=== PATIENT | female | born 1960 | race Caucasian/White ===

== ENCOUNTER 2017-08-31 16:24 | Inpatient (IN) | payer OTHER ==
[~2017-08-31] VITALS: Ht 162.6 cm; Wt 77.1 kg
[2017-08-31 16:48] VITALS: BP 134/90
[2017-08-31] MEDS ORDERED: CLON0.3T47 PO (17:36)
[2017-08-31] MEDS ORDERED: MORP30TA81 PO (17:36)
[2017-08-31] MEDS ORDERED: METO10TA2 PO (17:36)
[2017-08-31] MEDS ORDERED: TRAZ100T15 PO (17:36)
[2017-08-31] MEDS ORDERED: OXYC5TAB3 PO (17:36)
[2017-08-31] MEDS ORDERED: POTA20PA25 PO (17:36)
[2017-08-31] MEDS ORDERED: HYDR25TA11 PO (17:36)
[2017-08-31] MEDS ORDERED: DILT300C2 PO (17:36)
[2017-08-31] MEDS ORDERED: DIAZ5TAB4 PO (17:36)
[2017-08-31] MEDS ORDERED: ONDA4TAB12 PO (17:36)
[2017-08-31] MEDS ORDERED: PLEASE ENTER HEIGHT AND WEIGHT MC SCH ×2 (19:00→22:30)
[2017-08-31] MEDS ORDERED: PROMETHAZINE 25 MG/ML, 1ML IM PRN (19:00)
[2017-08-31] MEDS ORDERED: MAGNESIUM SULFATE PMX 2GM/50ML 50 ML IV ONE (19:30)
[2017-08-31] MEDS ORDERED: THIAMINE 200 MG in SODIUM CHLORIDE 0.9% 50 ML IV ONE (19:30)
[2017-08-31] MEDS ORDERED: POTASSIUM CHLORIDE 40 MEQ in SODIUM CHLORIDE 0.9% 500 ML IV ONE (19:30)
[2017-08-31 20:01] VITALS: BP 162/112
[2017-08-31] MEDS: OXYcodone IR 5MG TABLET PO PRN (21:27)
[2017-08-31 21:39] LABS: IS PT STATUS REG ER OR PRE ER? NO
[2017-08-31] MEDS: TRAZODONE 100MG TABLET PO PRN (21:53)
[2017-08-31] MEDS: DIAZEPAM 5 MG TABLET PO SCH (21:53)
[2017-08-31] MEDS: CEFTRIAXONE PMX 1GM/50ML 50 ML IV SCH (21:53)
[2017-08-31] MEDS: ENOXAPARIN 40 MG/0.4 ML SQ SCH (21:54)
[2017-08-31] MEDS: MORPHINE SULFATE 4 MG/ML, 1ML IVPush PRN (22:46)
[2017-09-01 01:12] VITALS: BP 109/67
[2017-09-01] MEDS: ONDANSETRON 2MG/ML, 2ML IVPush PRN ×2 (01:40→20:21)
[2017-09-01 05:56] LABS: HEMATOCRIT 47.3 % (34.6-47.8); HEMOGLOBIN 15.9 g/dL (11.7-16.4); WHITE BLOOD COUNT 9.2 x10^3/uL (3.4-10)
[2017-09-01 06:10] LABS: BLOOD UREA NITROGEN 23 mg/dL (7-18)
[2017-09-01 06:14] LABS: ASPARTATE AMINO TRANSFERASE 50 U/L (15-37)
[2017-09-01 06:16] LABS: IS PT STATUS REG ER OR PRE ER? NO
[2017-09-01] MEDS: OXYcodone IR 5MG TABLET PO PRN ×3 (06:18→20:21)
[2017-09-01] MEDS: THIAMINE 100 MG, MVI ADULT 10 ML, FOLIC ACID 1 MG in D5%-0.9% NACL 1,000 ML IV SCH (06:18)
[2017-09-01 07:15] VITALS: BP 106/70
[2017-09-01 07:20] VITALS: BP 106/70
[2017-09-01] MEDS: DILTIAZEM 300 MG CAP.ER.24H PO SCH (08:37)
[2017-09-01] MEDS: MORPHINE SULFATE 4 MG/ML, 1ML IVPush PRN (08:38)
[2017-09-01 11:23] LABS: IS PT STATUS REG ER OR PRE ER? NO
[2017-09-01 13:27] VITALS: BP 120/77
[2017-09-01 18:23] VITALS: BP 131/84
[2017-09-01] MEDS: CEFTRIAXONE PMX 1GM/50ML 50 ML IV SCH (20:21)
[2017-09-01] MEDS: DIAZEPAM 5 MG TABLET PO SCH (20:21)
[2017-09-01] MEDS: TRAZODONE 100MG TABLET PO PRN (20:21)
[2017-09-01] MEDS: ENOXAPARIN 40 MG/0.4 ML SQ SCH (20:22)
[2017-09-01] MEDS: SODIUM CHLORIDE 0.9% 1,000 ML IV SCH (23:31)
[2017-09-02 01:23] VITALS: BP 145/94
[2017-09-02] MEDS: OXYcodone IR 5MG TABLET PO PRN ×2 (01:52→11:31)
[2017-09-02] MEDS: ONDANSETRON 2MG/ML, 2ML IVPush PRN (01:52)
[2017-09-02] MEDS: LORazepam 2 MG/ML, 1ML IVPush PRN (01:52)
[2017-09-02 04:47] LABS: HEMOGLOBIN 15.2 g/dL (11.7-16.4); WHITE BLOOD COUNT 8.7 x10^3/uL (3.4-10)
[2017-09-02 05:00] LABS: BLOOD UREA NITROGEN 14 mg/dL (7-18)
[2017-09-02] MEDS: SODIUM CHLORIDE 0.9% 1,000 ML IV SCH ×2 (06:18→22:05)
[2017-09-02 09:02] VITALS: BP 164/98
[2017-09-02] MEDS ORDERED: POTASSIUM CHLORIDE 40 MEQ in SODIUM CHLORIDE 0.9% 500 ML IV ONE (11:00)
[2017-09-02 11:13] VITALS: BP 164/98
[2017-09-02] MEDS: THIAMINE 100 MG, MVI ADULT 10 ML, FOLIC ACID 1 MG in D5%-0.9% NACL 1,000 ML IV SCH (11:23)
[2017-09-02] MEDS: DILTIAZEM 300 MG CAP.ER.24H PO SCH (11:23)
[2017-09-02] MEDS: CHLORDIAZEPOXIDE 25 MG CAPSULE PO SCH ×3 (11:24→21:57)
[2017-09-02 13:45] VITALS: BP 135/90
[2017-09-02 18:34] VITALS: BP 131/88
[2017-09-02] MEDS: CEFTRIAXONE PMX 1GM/50ML 50 ML IV SCH (20:42)
[2017-09-02] MEDS: DIAZEPAM 5 MG TABLET PO SCH (21:00)
[2017-09-02] MEDS ORDERED: DIAZEPAM 10 MG TABLET ONE (21:53)
[2017-09-02] MEDS: ENOXAPARIN 40 MG/0.4 ML SQ SCH (21:57)
[2017-09-03] VITALS (7 sets, daily range): BP systolic 146–178; BP diastolic 90–135
[2017-09-03] MEDS: ONDANSETRON 2MG/ML, 2ML IVPush PRN ×3 (01:32→21:46)
[2017-09-03] MEDS ORDERED: hydrALAzine 20 MG/ML, 1ML IV PRN ×2 (02:30→04:00)
[2017-09-03 04:58] LABS: HEMATOCRIT 45.8 % (34.6-47.8); HEMOGLOBIN 15.3 g/dL (11.7-16.4); WHITE BLOOD COUNT 5.8 x10^3/uL (3.4-10)
[2017-09-03 05:12] LABS: BLOOD UREA NITROGEN 8 mg/dL (7-18)
[2017-09-03] MEDS: DILTIAZEM 300 MG CAP.ER.24H PO SCH (09:00)
[2017-09-03] MEDS: SODIUM CHLORIDE 0.9% 1,000 ML IV SCH ×2 (09:32→17:10)
[2017-09-03] MEDS: OXYcodone IR 5MG TABLET PO PRN (13:21)
[2017-09-03] MEDS: THIAMINE 100 MG, MVI ADULT 10 ML, FOLIC ACID 1 MG in D5%-0.9% NACL 1,000 ML IV SCH (15:35)
[2017-09-03] MEDS ORDERED: MAGNESIUM SULFATE PMX 2GM/50ML 50 ML IV ONE (16:30)
[2017-09-03] MEDS: ENOXAPARIN 40 MG/0.4 ML SQ SCH (20:37)
[2017-09-03] MEDS: DIAZEPAM 5 MG TABLET PO SCH (20:37)
[2017-09-04] MEDS: OXYcodone IR 5MG TABLET PO PRN (01:46)
[2017-09-04] MEDS: SODIUM CHLORIDE 0.9% 1,000 ML IV SCH ×3 (01:46→15:17)
[2017-09-04 01:55] VITALS: BP 155/97
[2017-09-04 06:14] LABS: HEMATOCRIT 44.9 % (34.6-47.8); HEMOGLOBIN 14.8 g/dL (11.7-16.4); WHITE BLOOD COUNT 5.6 x10^3/uL (3.4-10)
[2017-09-04 06:31] LABS: ASPARTATE AMINO TRANSFERASE 43 U/L (15-37); BLOOD UREA NITROGEN 5 mg/dL (7-18)
[2017-09-04 06:40] VITALS: BP 135/84
[2017-09-04] MEDS: ONDANSETRON 2MG/ML, 2ML IVPush PRN ×2 (08:48→20:37)
[2017-09-04] MEDS: DILTIAZEM 300 MG CAP.ER.24H PO SCH (08:52)
[2017-09-04] MEDS: MAGNESIUM OXIDE 400 MG TABLET PO SCH (08:52)
[2017-09-04 15:36] VITALS: BP 150/90
[2017-09-04 20:00] VITALS: BP 151/76
[2017-09-04] MEDS ORDERED: DIAZEPAM 10 MG TABLET ONE (20:14)
[2017-09-04] MEDS: DIAZEPAM 5 MG TABLET PO SCH (20:16)
[2017-09-04] MEDS: ENOXAPARIN 40 MG/0.4 ML SQ SCH (20:17)
[2017-09-05] MEDS: OXYcodone IR 5MG TABLET PO PRN ×3 (01:14→21:07)
[2017-09-05 02:00] VITALS: BP 163/88
[2017-09-05 05:16] LABS: HEMATOCRIT 45.1 % (34.6-47.8); HEMOGLOBIN 15.2 g/dL (11.7-16.4); WHITE BLOOD COUNT 6.2 x10^3/uL (3.4-10)
[2017-09-05 05:19] LABS: BLOOD UREA NITROGEN 7 mg/dL (7-18)
[2017-09-05] MEDS: DILTIAZEM 30 MG TABLET PO SCH ×2 (06:00→09:19)
[2017-09-05 07:53] VITALS: BP 150/81
[2017-09-05] MEDS: MAGNESIUM OXIDE 400 MG TABLET PO SCH (08:58)
[2017-09-05 15:15] VITALS: BP 127/76
[2017-09-05] MEDS: ENOXAPARIN 40 MG/0.4 ML SQ SCH (19:56)
[2017-09-05] MEDS: TRAZODONE 100MG TABLET PO PRN (19:57)
[2017-09-05] MEDS ORDERED: DIAZEPAM 10 MG TABLET ONE (19:58)
[2017-09-05 20:00] VITALS: BP 162/96
[2017-09-05] MEDS: DIAZEPAM 5 MG TABLET PO SCH (20:00)
[2017-09-06 02:00] VITALS: BP 143/86
[2017-09-06] MEDS: ONDANSETRON 2MG/ML, 2ML IVPush PRN ×2 (02:54→22:51)
[2017-09-06 05:54] LABS: HEMATOCRIT 43.5 % (34.6-47.8); HEMOGLOBIN 14.8 g/dL (11.7-16.4); WHITE BLOOD COUNT 6.1 x10^3/uL (3.4-10)
[2017-09-06 06:03] LABS: BLOOD UREA NITROGEN 11 mg/dL (7-18)
[2017-09-06 07:32] VITALS: BP 166/97
[2017-09-06] MEDS: MAGNESIUM OXIDE 400 MG TABLET PO SCH (08:52)
[2017-09-06] MEDS: IRBESARTAN 150 MG TABLET PO SCH (10:26)
[2017-09-06] MEDS: OXYcodone IR 5MG TABLET PO PRN ×2 (12:19→17:34)
[2017-09-06 16:26] VITALS: BP 161/89
[2017-09-06 20:00] VITALS: BP 126/77
[2017-09-06] MEDS ORDERED: DIAZEPAM 10 MG TABLET ONE (20:58)
[2017-09-06] MEDS: DIAZEPAM 5 MG TABLET PO SCH (21:00)
[2017-09-06] MEDS: ENOXAPARIN 40 MG/0.4 ML SQ SCH (21:04)
[2017-09-06] MEDS: DOCUSATE 100 MG CAPSULE PO PRN (22:51)
[2017-09-07 02:00] VITALS: BP 163/90
[2017-09-07] MEDS: OXYcodone IR 5MG TABLET PO PRN ×2 (02:52→17:19)
[2017-09-07 07:06] VITALS: BP 117/66
[2017-09-07] MEDS: MAGNESIUM OXIDE 400 MG TABLET PO SCH (08:31)
[2017-09-07] MEDS: IRBESARTAN 150 MG TABLET PO SCH (08:31)
[2017-09-07] MEDS: DOCUSATE 100 MG CAPSULE PO PRN (11:03)
[2017-09-07 13:55] VITALS: BP 134/76
[2017-09-07 19:51] VITALS: BP 150/89
[2017-09-07] MEDS: ENOXAPARIN 40 MG/0.4 ML SQ SCH (20:31)
[2017-09-07] MEDS: TRAZODONE 100MG TABLET PO PRN (20:32)
[2017-09-07] MEDS: DIAZEPAM 5 MG TABLET PO SCH (20:36)
[2017-09-08 01:15] VITALS: BP 150/88
[2017-09-08] MEDS: LORazepam 2 MG/ML, 1ML IVPush PRN (01:29)
[2017-09-08 05:19] LABS: BLOOD UREA NITROGEN 13 mg/dL (7-18)
[2017-09-08 05:29] LABS: HEMATOCRIT 43.3 % (34.6-47.8); HEMOGLOBIN 14.5 g/dL (11.7-16.4); WHITE BLOOD COUNT 7.6 x10^3/uL (3.4-10)
[2017-09-08 07:29] VITALS: BP 150/91
[2017-09-08] MEDS: IRBESARTAN 150 MG TABLET PO SCH (08:55)
[2017-09-08] MEDS: MAGNESIUM OXIDE 400 MG TABLET PO SCH (08:56)
[2017-09-08 13:48] VITALS: BP 125/80
[2017-09-08] MEDS ORDERED: MAGN400T26 PO (17:54)
[2017-09-08] MEDS ORDERED: IRBE150T49 PO (17:54)
[2017-09-09] MEDS ORDERED: IRBESARTAN 150 MG TABLET PO SCH (09:00)
== END 2017-09-08 18:40 | disposition home or self-care (01) | DRG 438 ==
LOC: 4WST 16:24 → 4EST 09-01 21:47
PROVIDERS: ADMIT Internal Medicine; ATTEND Internal Medicine
DX: K85.20 Alcohol induced acute pancreatitis without necrosis or infection (principal); E43 Unspecified severe protein-calorie malnutrition; F10.231 Alcohol dependence with withdrawal delirium; E87.2 Acidosis; D69.6 Thrombocytopenia, unspecified; D75.1 Secondary polycythemia; R65.10 Systemic inflammatory response syndrome (SIRS) of non-infectious origin without acute organ dysfunction; E87.1 Hypo-osmolality and hyponatremia; K56.7 Ileus, unspecified; N39.0 Urinary tract infection, site not specified; E87.5 Hyperkalemia; I10 Essential (primary) hypertension; F17.200 Nicotine dependence, unspecified, uncomplicated; G89.29 Other chronic pain; I45.81 Long QT syndrome; I48.91 Unspecified atrial fibrillation; Z90.710 Acquired absence of both cervix and uterus; Z88.8 Allergy status to other drugs, medicaments and biological substances
CPT/HCPCS: 36415; 71010; 80048; 80053; 80061; 81003; 82150; 82962; 83605; 83690; 83735; 84100; 84484; 85025; 87086; 93005; 93306; J0696; J1650; J2405; J3411; J3480; J7042; J0360; J2060; J3475; J7030; J7040

== ENCOUNTER 2018-03-21 10:57 | Inpatient (IN) | payer MEDICAID, OTHER ==
[~2018-03-21] VITALS: Ht 162.6 cm; Wt 68.2 kg
[~2018-03-21 10:57] MED LIST: CLON0.3T47 PO; DIAZ5TAB4 PO; DILT300C2 PO; HYDR25TA11 PO; IRBE150T49 PO; MAGN400T26 PO; METO10TA2 PO; MORP30TA81 PO; ONDA4TAB12 PO; OXYC5TAB3 PO; POTA20PA25 PO; TRAZ100T15 PO
[2018-03-21] MEDS ORDERED: SODIUM CHLORIDE FLUSH 10ML SYR IVF ONE (11:30)
[2018-03-21] MEDS ORDERED: SODIUM CHLORIDE 0.9% 1,000ML IVBOLUS ONE (11:30)
[2018-03-21 11:57] LABS: MEAN CORPUSCULAR HEMOGLOBIN 32.3 pg (27.0-34.8); MEAN CORPUSCULAR HGB CONC 33.4 g/dL (32.4-35.8); MEAN CORPUSCULAR VOLUME 96.7 fL (80-100); MEAN PLATELET VOLUME 9.5 fL (7.4-10.4); PLATELET COUNT 298 x10^3/uL (130-400); RED CELL DISTRIBUTION WIDTH 15.5 % (9.6-15.2)
[2018-03-21] MEDS ORDERED: CEFTRIAXONE PMX 1GM/50ML 50 ML IVPB ONE (12:00)
[2018-03-21 12:04] LABS: INTERNATIONAL NORMALIZED RATIO 1.1 (0.93-1.1); PROTHROMBIN TIME 11.4 Seconds (9.6-11.5)
[2018-03-21 12:12] LABS: MD YES
[2018-03-21 12:14] LABS: BAND#(MANUAL) 6.53 x10^3/uL; BANDS%(MANUAL) 21 % (0-7); LYMPH#(MANUAL) 1.56 x10^3/uL (1-3.4); LYMPHS% (MANUAL) 5 % (22-44); MONOS#(MANUAL) 0.62 x10^3/uL (0.3-2.7); MONOS% (MANUAL) 2 % (2-9); SEG#(MANUAL) 22.39 x10^3/uL (1.8-6.8); SEGS% (MANUAL) 72 % (42-75)
[2018-03-21 12:15] LABS: ALANINE AMINOTRANSFERASE 52 U/L (12-78); ANION GAP 14 mmol/L (5-15); ANISOCYTOSIS 1+; CALCIUM 9.3 mg/dL (8.5-10.1); CHLORIDE 95 mmol/L (98-107); CREATININE 1.03 mg/dL (0.55-1.02); PMNS WITH VACUOLES 1+; TOXIC GRAN 1+
[2018-03-21 12:16] LABS: <PLATELET ESTIMATE> ADEQUATE; <PLT MORPHOLOGY> NORMAL PLT MORPH
[2018-03-21 12:17] LABS: ALKALINE PHOSPHATASE 128 U/L (45-117); BILIRUBIN,TOTAL 1.9 mg/dL (0.2-1.0); TOTAL PROTEIN 6.7 g/dL (6.4-8.2)
[2018-03-21] MEDS ORDERED: CEFTRIAXONE PMX 1GM/50ML 50 ML ONE (13:10)
[2018-03-21] MEDS ORDERED: OMNIPAQUE 350 MG/ML, 150 ML BOTTLE ONE (13:23)
[2018-03-21] MEDS ORDERED: SODIUM CHLORIDE 0.9% 1,000 ML IV SCH ×2 (14:40→15:40)
[2018-03-21] MEDS: PIPERACILLIN/TAZO/PMX 4.5GM 100 ML IV SCH ×2 (15:00→21:21)
[2018-03-21] MEDS ORDERED: PHARMACOKINETIC MONITORING MC PRN (15:00)
[2018-03-21] MEDS ORDERED: VANCOMYCIN PER PHARMACY MC PRN (15:00)
[2018-03-21 15:28] LABS: MICROSCOPIC INDICATED
[2018-03-21 15:39] LABS: CULTURE INDICATED? YES
[2018-03-21] MEDS ORDERED: VANCOMYCIN 1,200 MG in SODIUM CHLORIDE 0.9% 250 ML IV SCH (16:00)
[2018-03-21] MEDS ORDERED: POTASSIUM CHLORIDE 40 MEQ in SODIUM CHLORIDE 0.9% 500 ML IV ONE (16:00)
[2018-03-21] MEDS ORDERED: GADOBUTROL 7.5 MMOL/7.5 ML PFS ONE (16:24)
[2018-03-21] MEDS: SODIUM CHLORIDE 0.9% 500 ML IV SCH ×4 (18:00→21:59)
[2018-03-21] MEDS: SODIUM CHLORIDE 0.9% 1,000 ML IV SCH (18:39)
[2018-03-21] MEDS ORDERED: ACETAMINOPHEN 650 MG SUPP PR PRN (19:00)
[2018-03-21] MEDS ORDERED: DEXTROSE 4 GM TAB.CHEW PO PRN (20:00)
[2018-03-21] MEDS ORDERED: DEXTROSE 50%, 50ML SYRINGE IVPush PRN (20:00)
[2018-03-21] MEDS ORDERED: GLUCAGON 1 MG IM PRN (20:00)
[2018-03-21 20:38] LABS: HEMOGLOBIN A1C 7.1 % (4.2-6.3)
[2018-03-21 20:43] VITALS: BP 125/80
[2018-03-21] MEDS: NICOTINE 7 MG/24 HR PATCH.TD24 TD SCH (21:00)
[2018-03-21] MEDS: SODIUM CHLORIDE FLUSH 10ML SYR IVF SCH (21:22)
[2018-03-21] MEDS ORDERED: MORPHINE SULFATE 4 MG/ML, 1ML ONE (21:54)
[2018-03-21] MEDS: INSULIN LISPRO 100 UNITS/ML, PEN SQ-INSULIN SCH (21:59)
[2018-03-21] MEDS: MORPHINE SULFATE 4 MG/ML, 1ML IVPush PRN (21:59)
[2018-03-21] MEDS ORDERED: OXYcodone IR 5MG TABLET PO PRN (22:00)
[2018-03-22] MEDS: PIPERACILLIN/TAZO/PMX 4.5GM 100 ML IV SCH ×2 (03:13→10:27)
[2018-03-22] MEDS: MORPHINE SULFATE 4 MG/ML, 1ML IVPush PRN ×3 (03:14→21:06)
[2018-03-22 04:28] LABS: MEAN CORPUSCULAR HEMOGLOBIN 32.3 pg (27.0-34.8); MEAN CORPUSCULAR HGB CONC 33.3 g/dL (32.4-35.8); MEAN PLATELET VOLUME 9.6 fL (7.4-10.4); PLATELET COUNT 292 x10^3/uL (130-400); RED BLOOD COUNT 4.71 x10^6/uL (3.82-5.3); RED CELL DISTRIBUTION WIDTH 16.1 % (9.6-15.2)
[2018-03-22 04:41] LABS: ALANINE AMINOTRANSFERASE 43 U/L (12-78); ALBUMIN 1.6 g/dL (3.4-5.0); ANION GAP 10 mmol/L (5-15); CALCIUM 9.4 mg/dL (8.5-10.1); CHLORIDE 104 mmol/L (98-107)
[2018-03-22 04:44] LABS: ALKALINE PHOSPHATASE 133 U/L (45-117); BILIRUBIN,TOTAL 1.4 mg/dL (0.2-1.0); CREATININE 0.66 mg/dL (0.55-1.02); TOTAL PROTEIN 6.1 g/dL (6.4-8.2)
[2018-03-22 05:00] VITALS: BP 130/90
[2018-03-22 05:06] LABS: MD YES
[2018-03-22 05:09] LABS: BAND#(MANUAL) 2.37 x10^3/uL; BANDS%(MANUAL) 9 % (0-7); LYMPH#(MANUAL) 0.53 x10^3/uL (1-3.4); LYMPHS% (MANUAL) 2 % (22-44); MONOS#(MANUAL) 0.79 x10^3/uL (0.3-2.7); MONOS% (MANUAL) 3 % (2-9); SEG#(MANUAL) 22.62 x10^3/uL (1.8-6.8); SEGS% (MANUAL) 86 % (42-75)
[2018-03-22 05:10] LABS: <PLATELET ESTIMATE> ADEQUATE; ANISOCYTOSIS 1+; LARGE PLATELETS 1+; PMNS WITH VACUOLES 1+
[2018-03-22] MEDS: INSULIN LISPRO 100 UNITS/ML, PEN SQ-INSULIN SCH ×4 (08:18→21:07)
[2018-03-22] MEDS: SODIUM CHLORIDE FLUSH 10ML SYR IVF SCH ×2 (09:14→21:07)
[2018-03-22] MEDS: DEXAMETHASONE 4 MG/ML, 1ML IVPush SCH ×3 (10:26→21:06)
[2018-03-22] MEDS ORDERED: SODIUM CHLORIDE 0.9% IVPB SCH ×2 (10:30→11:00)
[2018-03-22] MEDS ORDERED: DAPTOMYCIN IVPB SCH ×2 (10:30→11:00)
[2018-03-22] MEDS: SODIUM CHLORIDE 0.9% 1,000 ML IV SCH (12:16)
[2018-03-22 12:34] LABS: HCT (SEDRATE) 45.5 % (34.6-47.8)
[2018-03-22 12:47] LABS: ANION GAP 10 mmol/L (5-15); CALCIUM 9.5 mg/dL (8.5-10.1); CHLORIDE 105 mmol/L (98-107); CREATININE 0.59 mg/dL (0.55-1.02)
[2018-03-22 13:05] LABS: C-REACTIVE PROTEIN, QUANT > 19.00 mg/dL (0.02-0.49)
[2018-03-22] MEDS: DAPTOMYCIN 400 MG in SODIUM CHLORIDE 0.9% 100 ML IVPB SCH (13:05)
[2018-03-22] MEDS: NICOTINE 7 MG/24 HR PATCH.TD24 TD SCH (20:59)
[2018-03-22] MEDS: hydrALAzine 20 MG/ML, 1ML IV PRN (23:03)
[2018-03-23] MEDS ORDERED: LORazepam 2 MG/ML, 1ML ONE (00:18)
[2018-03-23] MEDS: SODIUM CHLORIDE 0.9% 1,000 ML IV SCH ×2 (00:23→11:44)
[2018-03-23] MEDS: LORazepam 2 MG/ML, 1ML IVPush PRN ×3 (00:24→12:09)
[2018-03-23] MEDS: hydrALAzine 20 MG/ML, 1ML IV PRN ×2 (04:10→10:33)
[2018-03-23] MEDS: DEXAMETHASONE 4 MG/ML, 1ML IVPush SCH ×4 (04:10→22:16)
[2018-03-23] MEDS: MORPHINE SULFATE 4 MG/ML, 1ML IVPush PRN ×2 (04:10→22:16)
[2018-03-23 04:33] LABS: MEAN CORPUSCULAR HEMOGLOBIN 32.1 pg (27.0-34.8); MEAN CORPUSCULAR VOLUME 97.4 fL (80-100); MEAN PLATELET VOLUME 9.8 fL (7.4-10.4); PLATELET COUNT 330 x10^3/uL (130-400); RED BLOOD COUNT 4.93 x10^6/uL (3.82-5.3); RED CELL DISTRIBUTION WIDTH 16.1 % (9.6-15.2)
[2018-03-23 04:41] LABS: ALBUMIN 1.6 g/dL (3.4-5.0); ANION GAP 9 mmol/L (5-15); CALCIUM 9.6 mg/dL (8.5-10.1); CHLORIDE 107 mmol/L (98-107)
[2018-03-23 04:44] LABS: ALANINE AMINOTRANSFERASE 30 U/L (12-78); ALKALINE PHOSPHATASE 120 U/L (45-117); CREATININE 0.56 mg/dL (0.55-1.02); TOTAL PROTEIN 6.6 g/dL (6.4-8.2)
[2018-03-23 04:48] VITALS: BP 174/78
[2018-03-23 05:41] LABS: MD YES
[2018-03-23 05:44] LABS: BAND#(MANUAL) 1.55 x10^3/uL; BANDS%(MANUAL) 5 % (0-7); LYMPH#(MANUAL) 0.31 x10^3/uL (1-3.4); LYMPHS% (MANUAL) 1 % (22-44); MONOS#(MANUAL) 0.93 x10^3/uL (0.3-2.7); MONOS% (MANUAL) 3 % (2-9); SEG#(MANUAL) 28.21 x10^3/uL (1.8-6.8); SEGS% (MANUAL) 91 % (42-75)
[2018-03-23 05:45] LABS: <PLATELET ESTIMATE> ADEQUATE; ANISOCYTOSIS 1+; LARGE PLATELETS 1+; PMNS WITH VACUOLES 1+
[2018-03-23] MEDS ORDERED: METOPROLOL TARTRATE 25 MG TABLET PO ONE (08:30)
[2018-03-23] MEDS: SODIUM CHLORIDE FLUSH 10ML SYR IVF SCH ×2 (09:31→21:00)
[2018-03-23] MEDS: INSULIN LISPRO 100 UNITS/ML, PEN SQ-INSULIN SCH ×4 (09:31→22:17)
[2018-03-23] MEDS: METOPROLOL TARTRATE 25 MG TABLET PO SCH ×2 (09:32→22:16)
[2018-03-23] MEDS: DAPTOMYCIN 400 MG in SODIUM CHLORIDE 0.9% 100 ML IVPB SCH (13:33)
[2018-03-23 14:20] LABS: AMPHETAMINE SCREEN, URINE Negative (Negative); BARBITURATE SCREEN, URINE Negative (Negative); BENZODIAZEPINE SCREEN, URINE Negative (Negative); CANNABINOID SCREEN, URINE Negative (Negative); COCAINE SCREEN, URINE Negative (Negative); METHADONE SCREEN, URINE Negative (Negative); OPIATE SCREEN, URINE Negative (Negative)
[2018-03-23] MEDS: CHLORDIAZEPOXIDE 25 MG CAPSULE PO SCH ×2 (14:38→22:16)
[2018-03-23] MEDS: THIAMINE 200 MG in SODIUM CHLORIDE 0.9% 50 ML IV SCH (14:38)
[2018-03-23] MEDS ORDERED: THROMBIN 5,000 UNIT VIAL TP ONE (15:54)
[2018-03-23] MEDS ORDERED: BACITRACIN OINT 500U/GM, 15 GM ONE (15:54)
[2018-03-23] MEDS ORDERED: BUPIVACAINE/PF-EPI 0.5% 1:200K ONE (15:54)
[2018-03-23] MEDS ORDERED: BACITRACIN 50,000 UNIT ONE (15:54)
[2018-03-23] MEDS ORDERED: methylPREDNISolone *ACETATE* 40 MG/ML ONE (15:54)
[2018-03-23] MEDS ORDERED: PROPOFOL 10 MG/ML, 20ML ONE (17:01)
[2018-03-23] MEDS ORDERED: ROCURONIUM 10 MG/ML,10ML ONE (17:01)
[2018-03-23] MEDS ORDERED: NEOSTIGMINE 1 MG/ML, 10ML ONE (17:01)
[2018-03-23] MEDS ORDERED: GLYCOPYRROLATE 0.2MG/1ML, 5ML ONE (17:01)
[2018-03-23] MEDS ORDERED: DEXAMETHASONE 4 MG/ML, 1ML ONE ×3 (17:01→17:36)
[2018-03-23] MEDS ORDERED: ONDANSETRON 2MG/ML, 2ML ONE (17:01)
[2018-03-23] MEDS ORDERED: CEFAZOLIN 1,000 MG ONE (17:01)
[2018-03-23] MEDS ORDERED: SUCCINYLCHOLINE 20 MG/ML, 10ML ONE (17:01)
[2018-03-23] MEDS ORDERED: VANCOMYCIN 1,000 MG ONE (17:33)
[2018-03-23] MEDS ORDERED: SODIUM CHLORIDE 0.9% 100 ML ONE (17:33)
[2018-03-23] MEDS ORDERED: MIDAZOLAM 1 MG/ML, 2ML ONE (20:28)
[2018-03-23] MEDS ORDERED: FENTANYL PF 100 MCG/2ML ONE (20:28)
[2018-03-23] MEDS ORDERED: DIAZEPAM 5 MG/ML, 2ML IV PRN (20:30)
[2018-03-23] MEDS ORDERED: METOPROLOL TARTRATE 50 MG TABLET PO SCH (20:30)
[2018-03-23] MEDS ORDERED: OXYcodone 5 MG/5 ML ORAL.SOL UDC ONE (20:34)
[2018-03-23] MEDS ORDERED: OXYcodone 5 MG/5 ML ORAL.SOL UDC PO PRN (21:00)
[2018-03-23] MEDS: NICOTINE 7 MG/24 HR PATCH.TD24 TD SCH (22:08)
[2018-03-24] MEDS: MORPHINE SULFATE 4 MG/ML, 1ML IVPush PRN ×4 (02:11→21:55)
[2018-03-24 04:15] VITALS: BP 145/97
[2018-03-24 04:27] LABS: MEAN CORPUSCULAR HEMOGLOBIN 32.7 pg (27.0-34.8); MEAN CORPUSCULAR HGB CONC 33.5 g/dL (32.4-35.8); MEAN CORPUSCULAR VOLUME 97.6 fL (80-100); MEAN PLATELET VOLUME 9.7 fL (7.4-10.4); PLATELET COUNT 299 x10^3/uL (130-400); RED BLOOD COUNT 4.55 x10^6/uL (3.82-5.3); RED CELL DISTRIBUTION WIDTH 16.3 % (9.6-15.2)
[2018-03-24 04:37] LABS: ALBUMIN 1.5 g/dL (3.4-5.0); ANION GAP 7 mmol/L (5-15); CALCIUM 8.8 mg/dL (8.5-10.1); CHLORIDE 112 mmol/L (98-107)
[2018-03-24 04:41] LABS: ALANINE AMINOTRANSFERASE 20 U/L (12-78); ALKALINE PHOSPHATASE 89 U/L (45-117); BILIRUBIN,TOTAL 0.8 mg/dL (0.2-1.0); CREATININE 0.49 mg/dL (0.55-1.02); TOTAL PROTEIN 5.9 g/dL (6.4-8.2)
[2018-03-24 05:07] LABS: MD YES
[2018-03-24 05:09] LABS: ANISOCYTOSIS 1+; BAND#(MANUAL) 2.55 x10^3/uL; BANDS%(MANUAL) 9 % (0-7); LYMPHS% (MANUAL) 6 % (22-44); MONOS#(MANUAL) 1.13 x10^3/uL (0.3-2.7); MONOS% (MANUAL) 4 % (2-9); SEG#(MANUAL) 22.92 x10^3/uL (1.8-6.8); SEGS% (MANUAL) 81 % (42-75)
[2018-03-24 05:10] LABS: <PLATELET ESTIMATE> ADEQUATE; LARGE PLATELETS 1+; PMNS WITH VACUOLES 1+
[2018-03-24] MEDS: DEXAMETHASONE 4 MG/ML, 1ML IVPush SCH (05:17)
[2018-03-24] MEDS: CHLORDIAZEPOXIDE 25 MG CAPSULE PO SCH ×3 (06:17→21:44)
[2018-03-24] MEDS: SODIUM CHLORIDE 0.9% 1,000 ML IV SCH (07:48)
[2018-03-24] MEDS: INSULIN LISPRO 100 UNITS/ML, PEN SQ-INSULIN SCH ×4 (07:48→21:56)
[2018-03-24] MEDS: SODIUM CHLORIDE FLUSH 10ML SYR IVF SCH ×2 (07:48→21:55)
[2018-03-24] MEDS: hydrALAzine 20 MG/ML, 1ML IV PRN ×2 (08:20→16:26)
[2018-03-24] MEDS: LORazepam 2 MG/ML, 1ML IVPush PRN ×4 (08:43→21:55)
[2018-03-24] MEDS ORDERED: LACTATED RINGERS 1,000 ML IV SCH (09:00)
[2018-03-24] MEDS: METOPROLOL 1 MG/ML, 5ML IVPush SCH ×2 (10:41→18:16)
[2018-03-24] MEDS: METOPROLOL TARTRATE 25 MG TABLET PO SCH ×2 (10:41→20:15)
[2018-03-24] MEDS: DAPTOMYCIN 400 MG in SODIUM CHLORIDE 0.9% 100 ML IVPB SCH (13:55)
[2018-03-24] MEDS: THIAMINE 200 MG in SODIUM CHLORIDE 0.9% 50 ML IV SCH (14:40)
[2018-03-24] MEDS: NICOTINE 7 MG/24 HR PATCH.TD24 TD SCH (20:15)
[2018-03-25] MEDS: METOPROLOL 1 MG/ML, 5ML IVPush SCH ×5 (00:11→23:17)
[2018-03-25 04:00] VITALS: BP 148/95
[2018-03-25] MEDS: LORazepam 2 MG/ML, 1ML IVPush PRN ×3 (04:18→17:15)
[2018-03-25] MEDS: MORPHINE SULFATE 4 MG/ML, 1ML IVPush PRN ×4 (04:18→20:53)
[2018-03-25 04:46] LABS: MEAN CORPUSCULAR HEMOGLOBIN 32.6 pg (27.0-34.8); MEAN CORPUSCULAR HGB CONC 33.6 g/dL (32.4-35.8); MEAN CORPUSCULAR VOLUME 97.1 fL (80-100); MEAN PLATELET VOLUME 9.7 fL (7.4-10.4); PLATELET COUNT 257 x10^3/uL (130-400); RED BLOOD COUNT 4.61 x10^6/uL (3.82-5.3)
[2018-03-25 04:56] LABS: ALBUMIN 1.8 g/dL (3.4-5.0); ANION GAP 6 mmol/L (5-15); CALCIUM 9.2 mg/dL (8.5-10.1); CHLORIDE 111 mmol/L (98-107)
[2018-03-25 05:26] LABS: ALANINE AMINOTRANSFERASE 24 U/L (12-78); ALKALINE PHOSPHATASE 79 U/L (45-117); BILIRUBIN,TOTAL 1.3 mg/dL (0.2-1.0); TOTAL PROTEIN 6.1 g/dL (6.4-8.2)
[2018-03-25 05:40] LABS: BASOPHILS # (AUTO) 0.04 x10^3/uL (0-0.1); BASOPHILS % (AUTO) 0 % (0-1); EOSINOPHILS # (AUTO) 0.02 x10^3/uL (0-0.4); EOSINOPHILS % (AUTO) 0 % (1-7); LYMPHOCYTES # (AUTO) 0.65 x10^3/uL (1-3.4); LYMPHOCYTES % (AUTO) 3 % (22-44); MD SCAN; MONOCYTES # (AUTO) 0.16 x10^3/uL (0.2-0.8); MONOCYTES % (AUTO) 1 % (2-9); NEUTROPHILS # (AUTO) 22.05 x10^3/uL (1.8-6.8); NEUTROPHILS % (AUTO) 96 % (42-75)
[2018-03-25] MEDS: CHLORDIAZEPOXIDE 25 MG CAPSULE PO SCH ×3 (06:03→20:05)
[2018-03-25] MEDS ORDERED: ERGOCALCIFEROL 50,000 UNIT CAPSULE PO SCH (07:30)
[2018-03-25] MEDS ORDERED: MAGNESIUM SULFATE PMX 2GM/50ML 50 ML IV ONE (07:30)
[2018-03-25] MEDS: INSULIN LISPRO 100 UNITS/ML, PEN SQ-INSULIN SCH ×4 (08:35→21:00)
[2018-03-25] MEDS: METOPROLOL TARTRATE 25 MG TABLET PO SCH ×2 (09:00→20:05)
[2018-03-25] MEDS: SODIUM CHLORIDE FLUSH 10ML SYR IVF SCH ×2 (09:52→20:50)
[2018-03-25] MEDS: SODIUM CHLORIDE 0.45% 1,000 ML IV SCH ×2 (09:53→23:20)
[2018-03-25] MEDS ORDERED: RIFAMPIN 600 MG IVPB SCH (10:00)
[2018-03-25] MEDS: RIFAMPIN 600 MG in SODIUM CHLORIDE 0.9% 100 ML IV SCH (11:04)
[2018-03-25] MEDS: THIAMINE 200 MG in SODIUM CHLORIDE 0.9% 50 ML IV SCH (13:07)
[2018-03-25] MEDS: DAPTOMYCIN 400 MG in SODIUM CHLORIDE 0.9% 100 ML IVPB SCH (13:25)
[2018-03-25] MEDS: hydrALAzine 20 MG/ML, 1ML IV PRN (17:14)
[2018-03-25] MEDS ORDERED: LORazepam 2 MG/ML, 1ML IV PRN ×4 (20:30)
[2018-03-25] MEDS: NICOTINE 7 MG/24 HR PATCH.TD24 TD SCH (20:50)
[2018-03-25] MEDS: LORazepam 2 MG/ML, 1ML IV PRN (23:25)
[2018-03-26] MEDS: CHLORDIAZEPOXIDE 25 MG CAPSULE PO SCH ×3 (00:32→19:26)
[2018-03-26 05:50] LABS: MEAN CORPUSCULAR HEMOGLOBIN 32.8 pg (27.0-34.8); MEAN CORPUSCULAR HGB CONC 34.2 g/dL (32.4-35.8); MEAN CORPUSCULAR VOLUME 95.9 fL (80-100); MEAN PLATELET VOLUME 10.2 fL (7.4-10.4); PLATELET COUNT 227 x10^3/uL (130-400); RED BLOOD COUNT 4.36 x10^6/uL (3.82-5.3)
[2018-03-26 06:01] LABS: ALANINE AMINOTRANSFERASE 17 U/L (12-78); ALBUMIN 1.8 g/dL (3.4-5.0); ANION GAP 9 mmol/L (5-15); CALCIUM 8.6 mg/dL (8.5-10.1); CHLORIDE 106 mmol/L (98-107); CREATININE 0.52 mg/dL (0.55-1.02)
[2018-03-26 06:11] LABS: ALKALINE PHOSPHATASE 82 U/L (45-117); BILIRUBIN,TOTAL 3.8 mg/dL (0.2-1.0); TOTAL PROTEIN 6.1 g/dL (6.4-8.2)
[2018-03-26 06:21] LABS: MD YES
[2018-03-26 06:27] LABS: <PLATELET ESTIMATE> ADEQUATE; ANISOCYTOSIS 1+; BAND#(MANUAL) 0.25 x10^3/uL; BANDS%(MANUAL) 1 % (0-7); LARGE PLATELETS 1+; LYMPH#(MANUAL) 0.99 x10^3/uL (1-3.4); LYMPHS% (MANUAL) 4 % (22-44); MONOS#(MANUAL) 0.74 x10^3/uL (0.3-2.7); MONOS% (MANUAL) 3 % (2-9); SEG#(MANUAL) 22.82 x10^3/uL (1.8-6.8); SEGS% (MANUAL) 92 % (42-75)
[2018-03-26 06:32] VITALS: BP 155/98
[2018-03-26] MEDS ORDERED: POTASSIUM CHLORIDE 40 MEQ in SODIUM CHLORIDE 0.9% 500 ML IV ONE (07:00)
[2018-03-26] MEDS: INSULIN LISPRO 100 UNITS/ML, PEN SQ-INSULIN SCH ×4 (07:00→20:45)
[2018-03-26] MEDS: METOPROLOL 1 MG/ML, 5ML IVPush SCH ×4 (07:22→23:22)
[2018-03-26] MEDS: LORazepam 2 MG/ML, 1ML IV PRN ×5 (07:34→22:09)
[2018-03-26] MEDS: ALBUTEROL/IPRATROPIUM 2.5MG/0.5MG, 3 ML NPPB SCH ×4 (08:10→19:52)
[2018-03-26] MEDS: METOPROLOL TARTRATE 25 MG TABLET PO SCH ×2 (09:00→19:26)
[2018-03-26] MEDS: SODIUM CHLORIDE FLUSH 10ML SYR IVF SCH ×2 (09:22→20:37)
[2018-03-26] MEDS: MORPHINE SULFATE 4 MG/ML, 1ML IVPush PRN ×3 (09:33→20:38)
[2018-03-26] MEDS: RIFAMPIN 600 MG in SODIUM CHLORIDE 0.9% 100 ML IV SCH (12:02)
[2018-03-26] MEDS: hydrALAzine 20 MG/ML, 1ML IV PRN ×2 (13:35→21:36)
[2018-03-26] MEDS: DAPTOMYCIN 400 MG in SODIUM CHLORIDE 0.9% 100 ML IVPB SCH (14:59)
[2018-03-26] MEDS: THIAMINE 200 MG in SODIUM CHLORIDE 0.9% 50 ML IV SCH (14:59)
[2018-03-26] MEDS: SODIUM CHLORIDE 0.45% 1,000 ML IV SCH (20:37)
[2018-03-26] MEDS: NICOTINE 7 MG/24 HR PATCH.TD24 TD SCH (20:38)
[2018-03-27] MEDS: MORPHINE SULFATE 4 MG/ML, 1ML IVPush PRN ×3 (01:17→23:14)
[2018-03-27] MEDS: LORazepam 2 MG/ML, 1ML IV PRN (02:22)
[2018-03-27] MEDS: KETOROLAC 30 MG/1 ML IVPush PRN ×3 (02:22→21:19)
[2018-03-27] MEDS: hydrALAzine 20 MG/ML, 1ML IV PRN (02:22)
[2018-03-27] MEDS: SODIUM CHLORIDE 0.45% 1,000 ML IV SCH (03:28)
[2018-03-27] MEDS: CHLORDIAZEPOXIDE 25 MG CAPSULE PO SCH (03:28)
[2018-03-27 04:32] LABS: MEAN CORPUSCULAR HEMOGLOBIN 31.7 pg (27.0-34.8); MEAN CORPUSCULAR HGB CONC 33.2 g/dL (32.4-35.8); MEAN CORPUSCULAR VOLUME 95.4 fL (80-100); MEAN PLATELET VOLUME 9.9 fL (7.4-10.4); PLATELET COUNT 229 x10^3/uL (130-400); RED BLOOD COUNT 4.17 x10^6/uL (3.82-5.3)
[2018-03-27 04:44] LABS: ALBUMIN 1.7 g/dL (3.4-5.0); ANION GAP 6 mmol/L (5-15); CALCIUM 8.3 mg/dL (8.5-10.1); CHLORIDE 110 mmol/L (98-107)
[2018-03-27 04:48] LABS: ALANINE AMINOTRANSFERASE 15 U/L (12-78); ALKALINE PHOSPHATASE 84 U/L (45-117); BILIRUBIN,TOTAL 3.2 mg/dL (0.2-1.0); CREATININE 0.45 mg/dL (0.55-1.02)
[2018-03-27 05:42] LABS: BASOPHILS # (AUTO) 0.02 x10^3/uL (0-0.1); BASOPHILS % (AUTO) 0 % (0-1); EOSINOPHILS # (AUTO) 0.08 x10^3/uL (0-0.4); EOSINOPHILS % (AUTO) 0 % (1-7); LYMPHOCYTES # (AUTO) 0.92 x10^3/uL (1-3.4); LYMPHOCYTES % (AUTO) 4 % (22-44); MD SCAN; MONOCYTES # (AUTO) 0.46 x10^3/uL (0.2-0.8); MONOCYTES % (AUTO) 2 % (2-9); NEUTROPHILS # (AUTO) 19.66 x10^3/uL (1.8-6.8); NEUTROPHILS % (AUTO) 93 % (42-75)
[2018-03-27] MEDS: INSULIN LISPRO 100 UNITS/ML, PEN SQ-INSULIN SCH ×4 (06:09→21:23)
[2018-03-27] MEDS: METOPROLOL 1 MG/ML, 5ML IVPush SCH ×4 (06:09→22:06)
[2018-03-27] MEDS ORDERED: D5%-0.45NACL+KCL 20MEQ 1,000 ML IV SCH (07:00)
[2018-03-27] MEDS: ALBUTEROL/IPRATROPIUM 2.5MG/0.5MG, 3 ML NPPB SCH (07:19)
[2018-03-27] MEDS: SODIUM CHLORIDE FLUSH 10ML SYR IVF SCH ×2 (10:21→21:08)
[2018-03-27] MEDS: CEFUROXIME 1.5 GM in SODIUM CHLORIDE 0.9% 100 ML IV SCH ×2 (10:35→17:19)
[2018-03-27] MEDS: RIFAMPIN 600 MG in SODIUM CHLORIDE 0.9% 100 ML IV SCH (12:10)
[2018-03-27] MEDS: METOPROLOL TARTRATE 25 MG TABLET PO SCH ×2 (13:36→21:08)
[2018-03-27] MEDS: THIAMINE 200 MG in SODIUM CHLORIDE 0.9% 50 ML IV SCH (13:36)
[2018-03-27] MEDS: DOCUSATE 50 MG/5 ML, 10ML UDC PO SCH (21:08)
[2018-03-27] MEDS: NICOTINE 7 MG/24 HR PATCH.TD24 TD SCH (21:08)
[2018-03-28] MEDS: CEFUROXIME 1.5 GM in SODIUM CHLORIDE 0.9% 100 ML IV SCH ×2 (01:01→08:20)
[2018-03-28 04:30] LABS: MEAN CORPUSCULAR HEMOGLOBIN 31.9 pg (27.0-34.8); MEAN CORPUSCULAR VOLUME 96.6 fL (80-100); MEAN PLATELET VOLUME 10.4 fL (7.4-10.4); PLATELET COUNT 211 x10^3/uL (130-400); RED BLOOD COUNT 3.84 x10^6/uL (3.82-5.3); RED CELL DISTRIBUTION WIDTH 16.1 % (9.6-15.2)
[2018-03-28 04:36] LABS: ALANINE AMINOTRANSFERASE 17 U/L (12-78); ALBUMIN 1.4 g/dL (3.4-5.0); ANION GAP 4 mmol/L (5-15); CALCIUM 8.5 mg/dL (8.5-10.1); CHLORIDE 112 mmol/L (98-107); CREATININE 0.53 mg/dL (0.55-1.02)
[2018-03-28 04:38] LABS: ALKALINE PHOSPHATASE 104 U/L (45-117); BILIRUBIN,TOTAL 1.8 mg/dL (0.2-1.0); TOTAL PROTEIN 5.7 g/dL (6.4-8.2)
[2018-03-28 04:59] LABS: BASOPHILS # (AUTO) 0.03 x10^3/uL (0-0.1); BASOPHILS % (AUTO) 0 % (0-1); EOSINOPHILS # (AUTO) 0.45 x10^3/uL (0-0.4); EOSINOPHILS % (AUTO) 3 % (1-7); LYMPHOCYTES # (AUTO) 0.84 x10^3/uL (1-3.4); LYMPHOCYTES % (AUTO) 6 % (22-44); MD SCAN; MONOCYTES # (AUTO) 0.43 x10^3/uL (0.2-0.8); MONOCYTES % (AUTO) 3 % (2-9); NEUTROPHILS # (AUTO) 13.25 x10^3/uL (1.8-6.8); NEUTROPHILS % (AUTO) 88 % (42-75)
[2018-03-28] MEDS: METOPROLOL 1 MG/ML, 5ML IVPush SCH (05:16)
[2018-03-28] MEDS: INSULIN LISPRO 100 UNITS/ML, PEN SQ-INSULIN SCH ×4 (06:45→21:10)
[2018-03-28] MEDS ORDERED: ALBUTEROL/IPRATROPIUM 2.5MG/0.5MG, 3 ML NPPB PRN (07:00)
[2018-03-28] MEDS: DOCUSATE 50 MG/5 ML, 10ML UDC PO SCH ×2 (08:20→21:01)
[2018-03-28] MEDS: METOPROLOL TARTRATE 25 MG TABLET PO SCH ×2 (08:20→21:01)
[2018-03-28] MEDS: SODIUM CHLORIDE FLUSH 10ML SYR IVF SCH ×2 (08:21→21:10)
[2018-03-28] MEDS ORDERED: MAGNESIUM CITRATE 300ML ORAL SOL PO PRN (08:30)
[2018-03-28] MEDS: BISACODYL 10 MG SUPP PR PRN (12:27)
[2018-03-28] MEDS: METHYLNALTREXONE 12 MG/0.6 ML SQ SCH (12:33)
[2018-03-28] MEDS: RIFAMPIN 600 MG in SODIUM CHLORIDE 0.9% 100 ML IV SCH (12:51)
[2018-03-28] MEDS: KETOROLAC 30 MG/1 ML IVPush PRN ×2 (12:55→21:01)
[2018-03-28] MEDS: hydrALAzine 20 MG/ML, 1ML IV PRN (15:51)
[2018-03-28] MEDS: THIAMINE 200 MG in SODIUM CHLORIDE 0.9% 50 ML IV SCH (15:51)
[2018-03-28] MEDS: CEFUROXIME 1.5 GM in SODIUM CHLORIDE 0.9% 50 ML IV SCH (16:42)
[2018-03-28] MEDS: NICOTINE 7 MG/24 HR PATCH.TD24 TD SCH (21:01)
[2018-03-29] MEDS: MORPHINE SULFATE 4 MG/ML, 1ML IVPush PRN (00:45)
[2018-03-29] MEDS: CEFUROXIME 1.5 GM in SODIUM CHLORIDE 0.9% 50 ML IV SCH ×3 (00:46→17:32)
[2018-03-29] MEDS: hydrALAzine 20 MG/ML, 1ML IV PRN (03:38)
[2018-03-29] MEDS: KETOROLAC 30 MG/1 ML IVPush PRN ×2 (06:17→21:24)
[2018-03-29 06:24] LABS: BASOPHILS # (AUTO) 0.05 x10^3/uL (0-0.1); BASOPHILS % (AUTO) 0 % (0-1); CHLORIDE 111 mmol/L (98-107); EOSINOPHILS # (AUTO) 0.24 x10^3/uL (0-0.4); EOSINOPHILS % (AUTO) 2 % (1-7); LYMPHOCYTES % (AUTO) 6 % (22-44); MD NO; MEAN CORPUSCULAR HEMOGLOBIN 31.8 pg (27.0-34.8); MEAN CORPUSCULAR HGB CONC 33.3 g/dL (32.4-35.8); MEAN CORPUSCULAR VOLUME 95.7 fL (80-100); MEAN PLATELET VOLUME 10.4 fL (7.4-10.4); MONOCYTES # (AUTO) 0.41 x10^3/uL (0.2-0.8); MONOCYTES % (AUTO) 3 % (2-9); NEUTROPHILS # (AUTO) 14.53 x10^3/uL (1.8-6.8); NEUTROPHILS % (AUTO) 90 % (42-75); PLATELET COUNT 261 x10^3/uL (130-400); RED BLOOD COUNT 3.88 x10^6/uL (3.82-5.3); RED CELL DISTRIBUTION WIDTH 16.1 % (9.6-15.2)
[2018-03-29 06:26] LABS: ALBUMIN 1.6 g/dL (3.4-5.0); ANION GAP 6 mmol/L (5-15); CALCIUM 8.6 mg/dL (8.5-10.1)
[2018-03-29 06:31] LABS: ALANINE AMINOTRANSFERASE 18 U/L (12-78); ALKALINE PHOSPHATASE 125 U/L (45-117); BILIRUBIN,TOTAL 0.9 mg/dL (0.2-1.0); CREATININE 0.58 mg/dL (0.55-1.02); TOTAL PROTEIN 6.2 g/dL (6.4-8.2)
[2018-03-29] MEDS: INSULIN LISPRO 100 UNITS/ML, PEN SQ-INSULIN SCH ×4 (06:44→21:22)
[2018-03-29 08:00] VITALS: BP 125/79
[2018-03-29] MEDS: DOCUSATE 50 MG/5 ML, 10ML UDC PO SCH ×2 (09:42→21:21)
[2018-03-29] MEDS: METOPROLOL TARTRATE 25 MG TABLET PO SCH ×2 (09:43→21:21)
[2018-03-29] MEDS: SODIUM CHLORIDE FLUSH 10ML SYR IVF SCH ×2 (09:43→21:21)
[2018-03-29] MEDS: TAMSULOSIN 0.4 MG CAP.ER.24H PO SCH (13:57)
[2018-03-29 14:00] VITALS: BP 145/86
[2018-03-29] MEDS: THIAMINE 200 MG in SODIUM CHLORIDE 0.9% 50 ML IV SCH (16:15)
[2018-03-29 17:06] VITALS: BP 133/87
[2018-03-29 19:28] VITALS: BP 149/99
[2018-03-29] MEDS: NICOTINE 7 MG/24 HR PATCH.TD24 TD SCH (21:22)
[2018-03-30] MEDS: CEFUROXIME 1.5 GM in SODIUM CHLORIDE 0.9% 50 ML IV SCH ×3 (01:02→17:15)
[2018-03-30] MEDS: hydrALAzine 20 MG/ML, 1ML IV PRN (01:05)
[2018-03-30 03:20] VITALS: BP 157/85
[2018-03-30 07:54] LABS: MEAN CORPUSCULAR HEMOGLOBIN 31.8 pg (27.0-34.8); MEAN CORPUSCULAR HGB CONC 33.2 g/dL (32.4-35.8); MEAN CORPUSCULAR VOLUME 95.8 fL (80-100); MEAN PLATELET VOLUME 10.1 fL (7.4-10.4); PLATELET COUNT 272 x10^3/uL (130-400)
[2018-03-30 08:02] LABS: ALANINE AMINOTRANSFERASE 17 U/L (12-78); ALBUMIN 1.6 g/dL (3.4-5.0); ANION GAP 3 mmol/L (5-15); CALCIUM 8.3 mg/dL (8.5-10.1); CHLORIDE 109 mmol/L (98-107); CREATININE 0.47 mg/dL (0.55-1.02)
[2018-03-30 08:04] LABS: ALKALINE PHOSPHATASE 109 U/L (45-117); BILIRUBIN,TOTAL 0.6 mg/dL (0.2-1.0); TOTAL PROTEIN 6.3 g/dL (6.4-8.2)
[2018-03-30] MEDS: INSULIN LISPRO 100 UNITS/ML, PEN SQ-INSULIN SCH ×4 (08:46→21:00)
[2018-03-30 08:55] LABS: BASOPHILS # (AUTO) 0.02 x10^3/uL (0-0.1); BASOPHILS % (AUTO) 0 % (0-1); EOSINOPHILS # (AUTO) 0.11 x10^3/uL (0-0.4); EOSINOPHILS % (AUTO) 1 % (1-7); LYMPHOCYTES # (AUTO) 0.77 x10^3/uL (1-3.4); LYMPHOCYTES % (AUTO) 4 % (22-44); MD SCAN; MONOCYTES # (AUTO) 0.44 x10^3/uL (0.2-0.8); MONOCYTES % (AUTO) 2 % (2-9); NEUTROPHILS # (AUTO) 20.59 x10^3/uL (1.8-6.8); NEUTROPHILS % (AUTO) 94 % (42-75)
[2018-03-30] MEDS: TAMSULOSIN 0.4 MG CAP.ER.24H PO SCH (09:00)
[2018-03-30] MEDS: SODIUM CHLORIDE FLUSH 10ML SYR IVF SCH (09:00)
[2018-03-30] MEDS: METOPROLOL TARTRATE 25 MG TABLET PO SCH ×2 (09:00→21:00)
[2018-03-30] MEDS: DOCUSATE 50 MG/5 ML, 10ML UDC PO SCH ×2 (09:00→21:00)
[2018-03-30 09:19] VITALS: BP 150/99
[2018-03-30 13:17] VITALS: BP 167/109
[2018-03-30] MEDS: THIAMINE 200 MG in SODIUM CHLORIDE 0.9% 50 ML IV SCH (16:21)
[2018-03-30 17:09] LABS: MEAN CORPUSCULAR HGB CONC 33.2 g/dL (32.4-35.8); MEAN CORPUSCULAR VOLUME 96.5 fL (80-100); MEAN PLATELET VOLUME 10.1 fL (7.4-10.4); PLATELET COUNT 290 x10^3/uL (130-400); RED BLOOD COUNT 3.79 x10^6/uL (3.82-5.3)
[2018-03-30 17:17] LABS: ANION GAP 4 mmol/L (5-15); CHLORIDE 108 mmol/L (98-107); CREATININE 0.43 mg/dL (0.55-1.02)
[2018-03-30 17:28] LABS: BASOPHILS # (AUTO) 0.02 x10^3/uL (0-0.1); BASOPHILS % (AUTO) 0 % (0-1); EOSINOPHILS # (AUTO) 0.13 x10^3/uL (0-0.4); EOSINOPHILS % (AUTO) 1 % (1-7); LYMPHOCYTES # (AUTO) 0.86 x10^3/uL (1-3.4); LYMPHOCYTES % (AUTO) 4 % (22-44); MD SCAN; MONOCYTES # (AUTO) 0.64 x10^3/uL (0.2-0.8); MONOCYTES % (AUTO) 3 % (2-9); NEUTROPHILS # (AUTO) 22.86 x10^3/uL (1.8-6.8); NEUTROPHILS % (AUTO) 93 % (42-75)
[2018-03-30] MEDS ORDERED: SODIUM CHLORIDE 0.9%, 500ML IVBOLUS ONE (18:00)
[2018-03-30] MEDS ORDERED: FUROSEMIDE 20 MG/2 ML IV ONE (18:30)
[2018-03-30] MEDS ORDERED: FUROSEMIDE 20 MG/2 ML ONE (18:33)
[2018-03-30] MEDS ORDERED: OMNIPAQUE 350 MG/ML, 100ML BOTTLE ONE (19:05)
[2018-03-30 20:10] VITALS: BP 133/90
[2018-03-30] MEDS: INSULIN GLARGINE 100 UNITS/ML, PEN SQ-INSULIN SCH (21:00)
[2018-03-31] MEDS: SODIUM CHLORIDE FLUSH 10ML SYR IVF SCH ×3 (00:10→21:28)
[2018-03-31] MEDS: NICOTINE 7 MG/24 HR PATCH.TD24 TD SCH ×2 (00:10→21:00)
[2018-03-31] MEDS: CEFUROXIME 1.5 GM in SODIUM CHLORIDE 0.9% 50 ML IV SCH ×3 (00:16→17:16)
[2018-03-31 01:54] VITALS: BP 134/88
[2018-03-31] MEDS ORDERED: METOPROLOL 1 MG/ML, 5ML IVPush ONE (03:00)
[2018-03-31] MEDS: PROMETHAZINE 25 MG/ML, 1ML IM PRN (04:32)
[2018-03-31 05:58] LABS: HEMOGLOBIN A1C 7.6 % (4.2-6.3)
[2018-03-31 05:59] LABS: CHLORIDE 110 mmol/L (98-107)
[2018-03-31 06:07] LABS: ALBUMIN 1.5 g/dL (3.4-5.0); ANION GAP 6 mmol/L (5-15); CALCIUM 8.6 mg/dL (8.5-10.1); CREATININE 0.31 mg/dL (0.55-1.02); MEAN CORPUSCULAR HEMOGLOBIN 32.2 pg (27.0-34.8); MEAN CORPUSCULAR HGB CONC 33.3 g/dL (32.4-35.8); MEAN CORPUSCULAR VOLUME 96.6 fL (80-100); PLATELET COUNT 274 x10^3/uL (130-400); RED BLOOD COUNT 3.35 x10^6/uL (3.82-5.3); RED CELL DISTRIBUTION WIDTH 15.7 % (9.6-15.2)
[2018-03-31] MEDS: INSULIN LISPRO 100 UNITS/ML, PEN SQ-INSULIN SCH ×4 (07:00→21:43)
[2018-03-31 07:50] VITALS: BP 102/61
[2018-03-31 08:01] LABS: BASOPHILS # (AUTO) 0.01 x10^3/uL (0-0.1); BASOPHILS % (AUTO) 0 % (0-1); EOSINOPHILS # (AUTO) 0.08 x10^3/uL (0-0.4); EOSINOPHILS % (AUTO) 0 % (1-7); LYMPHOCYTES % (AUTO) 5 % (22-44); MD SCAN; MONOCYTES # (AUTO) 0.42 x10^3/uL (0.2-0.8); MONOCYTES % (AUTO) 2 % (2-9); NEUTROPHILS # (AUTO) 16.37 x10^3/uL (1.8-6.8); NEUTROPHILS % (AUTO) 93 % (42-75)
[2018-03-31] MEDS ORDERED: OMNIPAQUE 350 MG/ML, 75ML BOTTLE ONE (08:57)
[2018-03-31] MEDS ORDERED: FUROSEMIDE 20 MG/2 ML IV SCH (09:00)
[2018-03-31] MEDS: TAMSULOSIN 0.4 MG CAP.ER.24H PO SCH (09:25)
[2018-03-31] MEDS: DOCUSATE 50 MG/5 ML, 10ML UDC PO SCH ×2 (09:25→21:28)
[2018-03-31] MEDS: METOPROLOL TARTRATE 25 MG TABLET PO SCH ×2 (09:25→21:29)
[2018-03-31 13:32] VITALS: BP 115/77
[2018-03-31] MEDS: THIAMINE 200 MG in SODIUM CHLORIDE 0.9% 50 ML IV SCH (17:16)
[2018-03-31 20:00] VITALS: BP 136/90
[2018-03-31] MEDS: INSULIN GLARGINE 100 UNITS/ML, PEN SQ-INSULIN SCH (21:43)
[2018-04-01 02:15] VITALS: BP 134/84
[2018-04-01] MEDS: CEFUROXIME 1.5 GM in SODIUM CHLORIDE 0.9% 50 ML IV SCH ×3 (04:37→21:16)
[2018-04-01] MEDS: ONDANSETRON ODT 4 MG PO PRN (04:38)
[2018-04-01 05:36] LABS: MEAN CORPUSCULAR HEMOGLOBIN 31.6 pg (27.0-34.8); MEAN CORPUSCULAR HGB CONC 32.4 g/dL (32.4-35.8); MEAN CORPUSCULAR VOLUME 97.6 fL (80-100); MEAN PLATELET VOLUME 9.7 fL (7.4-10.4); PLATELET COUNT 327 x10^3/uL (130-400); RED BLOOD COUNT 3.29 x10^6/uL (3.82-5.3); RED CELL DISTRIBUTION WIDTH 16.4 % (9.6-15.2)
[2018-04-01 05:42] LABS: ALBUMIN 1.6 g/dL (3.4-5.0); ANION GAP 3 mmol/L (5-15); CALCIUM 8.8 mg/dL (8.5-10.1); CHLORIDE 108 mmol/L (98-107); CREATININE 0.48 mg/dL (0.55-1.02)
[2018-04-01 06:08] LABS: BASOPHILS # (AUTO) 0.01 x10^3/uL (0-0.1); BASOPHILS % (AUTO) 0 % (0-1); EOSINOPHILS # (AUTO) 0.15 x10^3/uL (0-0.4); EOSINOPHILS % (AUTO) 1 % (1-7); LYMPHOCYTES # (AUTO) 1.01 x10^3/uL (1-3.4); LYMPHOCYTES % (AUTO) 5 % (22-44); MD SCAN; MONOCYTES # (AUTO) 0.74 x10^3/uL (0.2-0.8); MONOCYTES % (AUTO) 4 % (2-9); NEUTROPHILS % (AUTO) 91 % (42-75)
[2018-04-01] MEDS ORDERED: FUROSEMIDE 40 MG/4 ML IV SCH (09:00)
[2018-04-01] MEDS: INSULIN LISPRO 100 UNITS/ML, PEN SQ-INSULIN SCH ×3 (09:28→21:17)
[2018-04-01] MEDS: DOCUSATE 50 MG/5 ML, 10ML UDC PO SCH ×2 (10:39→21:16)
[2018-04-01] MEDS: TAMSULOSIN 0.4 MG CAP.ER.24H PO SCH (10:39)
[2018-04-01] MEDS: SODIUM CHLORIDE FLUSH 10ML SYR IVF SCH ×2 (10:39→21:16)
[2018-04-01] MEDS: OXYcodone IR 5MG TABLET PO PRN ×2 (10:39→21:16)
[2018-04-01] MEDS: ERGOCALCIFEROL 8,000UNIT/ML NG SCH (12:20)
[2018-04-01] MEDS: THIAMINE 200 MG in SODIUM CHLORIDE 0.9% 50 ML IV SCH (15:17)
[2018-04-01] MEDS: METOPROLOL TARTRATE 25 MG TABLET PO SCH (18:19)
[2018-04-01] MEDS: MAGNESIUM CITRATE 300ML ORAL SOL PO PRN (21:16)
[2018-04-01] MEDS: INSULIN GLARGINE 100 UNITS/ML, PEN SQ-INSULIN SCH (21:18)
[2018-04-01] MEDS: NICOTINE 7 MG/24 HR PATCH.TD24 TD SCH (21:20)
[2018-04-01] MEDS: MORPHINE SULFATE 4 MG/ML, 1ML IVPush PRN (23:05)
[2018-04-02] MEDS: CEFUROXIME 1.5 GM in SODIUM CHLORIDE 0.9% 50 ML IV SCH ×3 (04:09→21:05)
[2018-04-02 04:10] VITALS: BP 106/64
[2018-04-02] MEDS: INSULIN LISPRO 100 UNITS/ML, PEN SQ-INSULIN SCH ×4 (04:18→21:06)
[2018-04-02 04:27] LABS: BASOPHILS # (AUTO) 0.02 x10^3/uL (0-0.1); BASOPHILS % (AUTO) 0 % (0-1); EOSINOPHILS % (AUTO) 1 % (1-7); LYMPHOCYTES # (AUTO) 1.01 x10^3/uL (1-3.4); LYMPHOCYTES % (AUTO) 6 % (22-44); MD NO; MEAN CORPUSCULAR HEMOGLOBIN 32.5 pg (27.0-34.8); MEAN CORPUSCULAR HGB CONC 32.9 g/dL (32.4-35.8); MEAN CORPUSCULAR VOLUME 98.9 fL (80-100); MEAN PLATELET VOLUME 9.5 fL (7.4-10.4); MONOCYTES # (AUTO) 0.63 x10^3/uL (0.2-0.8); MONOCYTES % (AUTO) 4 % (2-9); NEUTROPHILS # (AUTO) 15.96 x10^3/uL (1.8-6.8); NEUTROPHILS % (AUTO) 90 % (42-75); PLATELET COUNT 303 x10^3/uL (130-400); RED BLOOD COUNT 2.89 x10^6/uL (3.82-5.3)
[2018-04-02 04:35] LABS: HCT (SEDRATE) 28.6 % (34.6-47.8)
[2018-04-02 04:42] LABS: ALANINE AMINOTRANSFERASE 15 U/L (12-78); ALBUMIN 1.5 g/dL (3.4-5.0); ANION GAP 3 mmol/L (5-15); CHLORIDE 109 mmol/L (98-107); CREATININE 0.41 mg/dL (0.55-1.02)
[2018-04-02 04:49] LABS: ALKALINE PHOSPHATASE 67 U/L (45-117); BILIRUBIN,TOTAL 0.4 mg/dL (0.2-1.0); TOTAL PROTEIN 5.7 g/dL (6.4-8.2)
[2018-04-02] MEDS: METOPROLOL TARTRATE 25 MG TABLET PO SCH ×2 (05:49→18:00)
[2018-04-02] MEDS: BISACODYL 10 MG SUPP PR PRN (06:17)
[2018-04-02] MEDS: SODIUM CHLORIDE FLUSH 10ML SYR IVF SCH ×2 (09:30→21:05)
[2018-04-02] MEDS: TAMSULOSIN 0.4 MG CAP.ER.24H PO SCH (10:24)
[2018-04-02] MEDS: DOCUSATE 50 MG/5 ML, 10ML UDC PO SCH ×2 (10:26→21:05)
[2018-04-02] MEDS ORDERED: MIDAZOLAM 1 MG/ML, 5ML IVPush ONE (11:00)
[2018-04-02] MEDS ORDERED: SUCCINYLCHOLINE 20 MG/ML, 10ML IVPush ONE (11:00)
[2018-04-02] MEDS ORDERED: MIDAZOLAM 1 MG/ML, 5ML ONE (11:21)
[2018-04-02] MEDS ORDERED: PROPOFOL 10 MG/ML, 100ML IV ONE (11:21)
[2018-04-02] MEDS ORDERED: SUCCINYLCHOLINE 20 MG/ML, 10ML ONE (11:21)
[2018-04-02] MEDS ORDERED: LIDOCAINE-MPF 1%, 2ML ENDO PRN (11:30)
[2018-04-02] MEDS ORDERED: BISACODYL 10 MG SUPP PR PRN (11:30)
[2018-04-02] MEDS ORDERED: SODIUM CHLORIDE 0.9%, 500ML IVBOLUS ONE ×2 (11:30→12:30)
[2018-04-02] MEDS ORDERED: LACTULOSE 20 GM/30 ML UDC NG PRN (11:30)
[2018-04-02] MEDS ORDERED: SENNOSIDES 8.8 MG/5 ML ORAL SOL NG PRN (11:30)
[2018-04-02] MEDS ORDERED: PHARMACY MAY ADJ FOR RENAL FX MC SCH (11:30)
[2018-04-02] MEDS: ALBUTEROL/IPRATROPIUM 2.5MG/0.5MG, 3 ML INLINE SCH ×4 (11:30→22:04)
[2018-04-02 12:03] LABS: TROPONIN I 0.019 ng/mL (0.000-0.045)
[2018-04-02] MEDS: FAMOTIDINE 20 MG/2 ML IV SCH ×2 (12:46→23:38)
[2018-04-02 12:55] LABS: MEAN CORPUSCULAR HEMOGLOBIN 31.7 pg (27.0-34.8); MEAN CORPUSCULAR HGB CONC 32.2 g/dL (32.4-35.8); MEAN CORPUSCULAR VOLUME 98.4 fL (80-100); MEAN PLATELET VOLUME 9.5 fL (7.4-10.4); PLATELET COUNT 292 x10^3/uL (130-400); RED BLOOD COUNT 2.62 x10^6/uL (3.82-5.3); RED CELL DISTRIBUTION WIDTH 16.1 % (9.6-15.2)
[2018-04-02 13:06] LABS: ANION GAP 3 mmol/L (5-15); CALCIUM 8.6 mg/dL (8.5-10.1); CHLORIDE 111 mmol/L (98-107)
[2018-04-02 13:10] LABS: CREATININE 0.42 mg/dL (0.55-1.02); TROPONIN I < 0.015 ng/mL (0.000-0.045)
[2018-04-02 13:13] LABS: BASOPHILS # (AUTO) 0.04 x10^3/uL (0-0.1); BASOPHILS % (AUTO) 0 % (0-1); EOSINOPHILS % (AUTO) 1 % (1-7); LYMPHOCYTES # (AUTO) 0.89 x10^3/uL (1-3.4); LYMPHOCYTES % (AUTO) 5 % (22-44); MD SCAN; MONOCYTES # (AUTO) 0.55 x10^3/uL (0.2-0.8); MONOCYTES % (AUTO) 3 % (2-9); NEUTROPHILS # (AUTO) 14.98 x10^3/uL (1.8-6.8); NEUTROPHILS % (AUTO) 90 % (42-75)
[2018-04-02] MEDS: OXYcodone IR 5MG TABLET PO PRN (14:25)
[2018-04-02] MEDS ORDERED: SODIUM CHLORIDE 0.9% 1,000ML IVBOLUS ONE (16:00)
[2018-04-02] MEDS ORDERED: LIDOCAINE 2%, 2ML ONE (16:10)
[2018-04-02] MEDS ORDERED: LIDOCAINE/PF 1%, 30ML INFIL ONE (18:30)
[2018-04-02] MEDS: FENTANYL PF 100 MCG/2ML IVPush PRN (19:27)
[2018-04-02 19:36] LABS: TROPONIN I 0.015 ng/mL (0.000-0.045)
[2018-04-02] MEDS ORDERED: INSULIN GLARGINE 100 UNITS/ML, PEN SQ-INSULIN SCH (21:00)
[2018-04-02] MEDS: NICOTINE 7 MG/24 HR PATCH.TD24 TD SCH (21:09)
[2018-04-03] MEDS: ALBUTEROL/IPRATROPIUM 2.5MG/0.5MG, 3 ML INLINE SCH ×6 (02:20→22:40)
[2018-04-03] MEDS: INSULIN LISPRO 100 UNITS/ML, PEN SQ-INSULIN SCH ×4 (04:11→21:38)
[2018-04-03] MEDS: CEFUROXIME 1.5 GM in SODIUM CHLORIDE 0.9% 50 ML IV SCH (04:20)
[2018-04-03 04:45] LABS: CALCIUM 8.3 mg/dL (8.5-10.1); CHLORIDE 112 mmol/L (98-107)
[2018-04-03 04:49] LABS: ANION GAP 5 mmol/L (5-15); CREATININE 0.51 mg/dL (0.55-1.02)
[2018-04-03 05:00] VITALS: BP 106/64
[2018-04-03] MEDS: METOPROLOL TARTRATE 25 MG TABLET PO SCH ×2 (05:13→18:41)
[2018-04-03 05:22] LABS: BASOPHILS # (AUTO) 0.03 x10^3/uL (0-0.1); BASOPHILS % (AUTO) 0 % (0-1); EOSINOPHILS # (AUTO) 0.07 x10^3/uL (0-0.4); EOSINOPHILS % (AUTO) 1 % (1-7); LYMPHOCYTES # (AUTO) 0.95 x10^3/uL (1-3.4); LYMPHOCYTES % (AUTO) 7 % (22-44); MD NO; MEAN CORPUSCULAR HEMOGLOBIN 32.7 pg (27.0-34.8); MEAN CORPUSCULAR HGB CONC 33.5 g/dL (32.4-35.8); MEAN CORPUSCULAR VOLUME 97.6 fL (80-100); MEAN PLATELET VOLUME 9.7 fL (7.4-10.4); MONOCYTES # (AUTO) 0.35 x10^3/uL (0.2-0.8); MONOCYTES % (AUTO) 3 % (2-9); NEUTROPHILS # (AUTO) 11.54 x10^3/uL (1.8-6.8); NEUTROPHILS % (AUTO) 89 % (42-75); PLATELET COUNT 256 x10^3/uL (130-400); RED BLOOD COUNT 2.38 x10^6/uL (3.82-5.3); RED CELL DISTRIBUTION WIDTH 16.3 % (9.6-15.2)
[2018-04-03] MEDS: FENTANYL PF 100 MCG/2ML IVPush PRN ×3 (05:49→15:14)
[2018-04-03] MEDS: DOCUSATE 50 MG/5 ML, 10ML UDC PO SCH ×2 (09:20→21:34)
[2018-04-03] MEDS: SODIUM CHLORIDE FLUSH 10ML SYR IVF SCH ×2 (09:20→21:35)
[2018-04-03] MEDS: TAMSULOSIN 0.4 MG CAP.ER.24H PO SCH (09:21)
[2018-04-03] MEDS: FAMOTIDINE 20 MG/2 ML IV SCH ×2 (11:46→23:31)
[2018-04-03] MEDS: NAFCILLIN 2 GM in DEXTROSE 5% 100 ML IV SCH ×4 (11:46→23:33)
[2018-04-03] MEDS ORDERED: INSULIN GLARGINE 100 UNITS/ML, PEN SQ-INSULIN SCH (21:00)
[2018-04-03] MEDS: NICOTINE 7 MG/24 HR PATCH.TD24 TD SCH (21:34)
[2018-04-03] MEDS: PROPOFOL 100 ML IV PRN (21:34)
[2018-04-03] MEDS ORDERED: SODIUM CHLORIDE 0.9%, 500ML IVBOLUS ONE (23:30)
[2018-04-04] MEDS: FENTANYL PF 100 MCG/2ML IVPush PRN ×2 (00:43→03:11)
[2018-04-04] MEDS: ALBUTEROL/IPRATROPIUM 2.5MG/0.5MG, 3 ML INLINE SCH ×6 (02:13→22:06)
[2018-04-04] MEDS: NAFCILLIN 2 GM in DEXTROSE 5% 100 ML IV SCH ×6 (03:11→23:30)
[2018-04-04] MEDS: INSULIN LISPRO 100 UNITS/ML, PEN SQ-INSULIN SCH ×4 (03:12→22:37)
[2018-04-04 03:16] VITALS: BP 101/69
[2018-04-04 04:53] LABS: MEAN CORPUSCULAR HEMOGLOBIN 32.2 pg (27.0-34.8); MEAN CORPUSCULAR VOLUME 97.7 fL (80-100); MEAN PLATELET VOLUME 9.7 fL (7.4-10.4); PLATELET COUNT 180 x10^3/uL (130-400); RED BLOOD COUNT 2.31 x10^6/uL (3.82-5.3); RED CELL DISTRIBUTION WIDTH 16.2 % (9.6-15.2)
[2018-04-04 04:56] LABS: ANION GAP 5 mmol/L (5-15); CHLORIDE 110 mmol/L (98-107)
[2018-04-04 04:58] LABS: CREATININE 0.54 mg/dL (0.55-1.02)
[2018-04-04 05:15] LABS: BASOPHILS # (AUTO) 0.07 x10^3/uL (0-0.1); BASOPHILS % (AUTO) 1 % (0-1); EOSINOPHILS % (AUTO) 2 % (1-7); LYMPHOCYTES # (AUTO) 0.79 x10^3/uL (1-3.4); LYMPHOCYTES % (AUTO) 7 % (22-44); MD SCAN; MONOCYTES # (AUTO) 0.35 x10^3/uL (0.2-0.8); MONOCYTES % (AUTO) 3 % (2-9); NEUTROPHILS # (AUTO) 9.35 x10^3/uL (1.8-6.8); NEUTROPHILS % (AUTO) 87 % (42-75)
[2018-04-04] MEDS: METOPROLOL TARTRATE 25 MG TABLET PO SCH ×2 (05:54→17:46)
[2018-04-04] MEDS: TAMSULOSIN 0.4 MG CAP.ER.24H PO SCH (09:01)
[2018-04-04] MEDS: SODIUM CHLORIDE FLUSH 10ML SYR IVF SCH ×2 (09:01→22:46)
[2018-04-04] MEDS: DOCUSATE 50 MG/5 ML, 10ML UDC PO SCH ×2 (09:01→22:47)
[2018-04-04] MEDS: FAMOTIDINE 20 MG/2 ML IV SCH ×2 (11:50→22:48)
[2018-04-04] MEDS: PROPOFOL 100 ML IV PRN (11:51)
[2018-04-04] MEDS ORDERED: BUPIVACAINE/PF 0.5% ONE (14:10)
[2018-04-04] MEDS ORDERED: EPINEPHRINE 1 MG/ML, 1ML ONE (14:11)
[2018-04-04] MEDS ORDERED: NEOSPORIN OINT, 15GM ONE (14:11)
[2018-04-04] MEDS ORDERED: LIDOCAINE/PF 1%, 30ML ONE (14:11)
[2018-04-04] MEDS ORDERED: EPINEPHRINE TOPICAL SOLN 1 MG/ML, 30ML ONE (14:11)
[2018-04-04] MEDS ORDERED: FENTANYL PF 250 MCG/5ML ONE (15:17)
[2018-04-04] MEDS ORDERED: MIDAZOLAM 1 MG/ML, 5ML ONE (15:17)
[2018-04-04] MEDS ORDERED: ROCURONIUM 10 MG/ML,10ML ONE (15:18)
[2018-04-04] MEDS ORDERED: PHENYLEPHRINE 10 MG/ML ONE (15:18)
[2018-04-04] MEDS ORDERED: PROPOFOL 10 MG/ML, 20ML ONE (15:18)
[2018-04-04] MEDS ORDERED: THROMBIN 5,000 UNIT VIAL TP ONE (16:17)
[2018-04-04] MEDS: MORPHINE SULFATE 4 MG/ML, 1ML IVPush PRN (17:37)
[2018-04-04] MEDS: ONDANSETRON ODT 4 MG PO PRN (17:46)
[2018-04-04] MEDS ORDERED: DEXMEDETOMIDINE 1,000 MCG in SODIUM CHLORIDE 0.9% 240 ML IV PRN (20:00)
[2018-04-04] MEDS ORDERED: SODIUM CHLORIDE 0.9% 1,000ML IVBOLUS ONE ×2 (20:00→22:30)
[2018-04-04] MEDS: INSULIN GLARGINE 100 UNITS/ML, PEN SQ-INSULIN SCH (22:39)
[2018-04-04] MEDS: NICOTINE 7 MG/24 HR PATCH.TD24 TD SCH (22:49)
[2018-04-04] MEDS: OXYcodone IR 5MG TABLET PO PRN (23:30)
[2018-04-05] MEDS ORDERED: SODIUM CHLORIDE 0.9% 1,000ML IVBOLUS ONE (00:30)
[2018-04-05] MEDS: ALBUTEROL/IPRATROPIUM 2.5MG/0.5MG, 3 ML INLINE SCH ×3 (02:27→10:44)
[2018-04-05] MEDS: NAFCILLIN 2 GM in DEXTROSE 5% 100 ML IV SCH ×6 (03:37→23:48)
[2018-04-05] MEDS: INSULIN LISPRO 100 UNITS/ML, PEN SQ-INSULIN SCH ×4 (03:50→21:00)
[2018-04-05 04:00] VITALS: BP 100/62
[2018-04-05 04:22] LABS: MEAN CORPUSCULAR HEMOGLOBIN 32.4 pg (27.0-34.8); MEAN CORPUSCULAR HGB CONC 33.1 g/dL (32.4-35.8); MEAN CORPUSCULAR VOLUME 97.6 fL (80-100); MEAN PLATELET VOLUME 10.1 fL (7.4-10.4); PLATELET COUNT 205 x10^3/uL (130-400); RED BLOOD COUNT 2.25 x10^6/uL (3.82-5.3); RED CELL DISTRIBUTION WIDTH 16.6 % (9.6-15.2)
[2018-04-05 04:30] LABS: ANION GAP 5 mmol/L (5-15); CALCIUM 7.5 mg/dL (8.5-10.1); CHLORIDE 111 mmol/L (98-107); CREATININE 0.52 mg/dL (0.55-1.02); TRIGLYCERIDES 101 mg/dL (50-200)
[2018-04-05 04:46] LABS: MD SCAN
[2018-04-05 04:47] LABS: BASOPHILS # (AUTO) 0.06 x10^3/uL (0-0.1); BASOPHILS % (AUTO) 1 % (0-1); EOSINOPHILS # (AUTO) 0.21 x10^3/uL (0-0.4); EOSINOPHILS % (AUTO) 2 % (1-7); LYMPHOCYTES # (AUTO) 0.56 x10^3/uL (1-3.4); LYMPHOCYTES % (AUTO) 6 % (22-44); MONOCYTES # (AUTO) 0.24 x10^3/uL (0.2-0.8); MONOCYTES % (AUTO) 2 % (2-9); NEUTROPHILS # (AUTO) 9.07 x10^3/uL (1.8-6.8); NEUTROPHILS % (AUTO) 90 % (42-75)
[2018-04-05] MEDS: METOPROLOL TARTRATE 25 MG TABLET PO SCH ×2 (05:20→18:30)
[2018-04-05] MEDS: SODIUM CHLORIDE FLUSH 10ML SYR IVF SCH ×2 (09:26→23:50)
[2018-04-05] MEDS: FAMOTIDINE 20 MG/2 ML IV SCH ×2 (09:27→23:59)
[2018-04-05] MEDS: DOCUSATE 50 MG/5 ML, 10ML UDC PO SCH ×2 (09:27→21:00)
[2018-04-05] MEDS: TAMSULOSIN 0.4 MG CAP.ER.24H PO SCH (09:33)
[2018-04-05] MEDS ORDERED: ALBUTEROL/IPRATROPIUM 2.5MG/0.5MG, 3 ML NPPB PRN (12:00)
[2018-04-05] MEDS ORDERED: FUROSEMIDE 40 MG/4 ML ONE (12:05)
[2018-04-05] MEDS ORDERED: FUROSEMIDE 40 MG/4 ML IV ONE (12:30)
[2018-04-05] MEDS: ALBUTEROL/IPRATROPIUM 2.5MG/0.5MG, 3 ML NPPB SCH ×3 (13:00→23:00)
[2018-04-05] MEDS ORDERED: VECURONIUM 10 MG ONE (19:00)
[2018-04-05] MEDS ORDERED: MIDAZOLAM 1 MG/ML, 5ML ONE (19:00)
[2018-04-05] MEDS: NICOTINE 7 MG/24 HR PATCH.TD24 TD SCH (21:00)
[2018-04-05] MEDS ORDERED: MIDAZOLAM 1 MG/ML, 5ML IVPush ONE (21:00)
[2018-04-05] MEDS ORDERED: LACTATED RINGERS 1,000 ML IVBOLUS ONE (22:00)
[2018-04-05] MEDS ORDERED: VECURONIUM 10 MG IVPush ONE (22:00)
[2018-04-05] MEDS ORDERED: PROPOFOL 100 ML IV PRN (22:10)
[2018-04-05] MEDS ORDERED: LIDOCAINE-MPF 1%, 2ML ENDO PRN (22:30)
[2018-04-05] MEDS: INSULIN GLARGINE 100 UNITS/ML, PEN SQ-INSULIN SCH (23:58)
[2018-04-06] MEDS ORDERED: NOREPINEPHRINE 4 MG in SODIUM CHLORIDE 0.9% 246 ML IV PRN
[2018-04-06] MEDS: ALBUTEROL/IPRATROPIUM 2.5MG/0.5MG, 3 ML NPPB SCH ×6 (02:20→22:00)
[2018-04-06] MEDS: NAFCILLIN 2 GM in DEXTROSE 5% 100 ML IV SCH ×5 (04:08→21:01)
[2018-04-06] MEDS: INSULIN LISPRO 100 UNITS/ML, PEN SQ-INSULIN SCH ×4 (04:10→22:12)
[2018-04-06 05:16] LABS: BASOPHILS # (AUTO) 0.02 x10^3/uL (0-0.1); BASOPHILS % (AUTO) 0 % (0-1); EOSINOPHILS % (AUTO) 1 % (1-7); LYMPHOCYTES # (AUTO) 0.56 x10^3/uL (1-3.4); LYMPHOCYTES % (AUTO) 5 % (22-44); MD NO; MEAN CORPUSCULAR HEMOGLOBIN 32.3 pg (27.0-34.8); MEAN CORPUSCULAR HGB CONC 32.7 g/dL (32.4-35.8); MEAN CORPUSCULAR VOLUME 98.9 fL (80-100); MEAN PLATELET VOLUME 9.5 fL (7.4-10.4); MONOCYTES # (AUTO) 0.31 x10^3/uL (0.2-0.8); MONOCYTES % (AUTO) 3 % (2-9); NEUTROPHILS # (AUTO) 10.97 x10^3/uL (1.8-6.8); NEUTROPHILS % (AUTO) 92 % (42-75); PLATELET COUNT 227 x10^3/uL (130-400); RED BLOOD COUNT 2.41 x10^6/uL (3.82-5.3); RED CELL DISTRIBUTION WIDTH 16.6 % (9.6-15.2)
[2018-04-06 05:26] LABS: ANION GAP 7 mmol/L (5-15); CALCIUM 7.6 mg/dL (8.5-10.1); CHLORIDE 108 mmol/L (98-107); CREATININE 0.52 mg/dL (0.55-1.02)
[2018-04-06] MEDS: METOPROLOL TARTRATE 25 MG TABLET PO SCH ×2 (05:52→18:00)
[2018-04-06 06:00] VITALS: BP 101/53
[2018-04-06] MEDS: DOCUSATE 50 MG/5 ML, 10ML UDC PO SCH ×2 (08:20→21:55)
[2018-04-06] MEDS: FAMOTIDINE 20 MG/2 ML IV SCH ×2 (08:20→21:55)
[2018-04-06] MEDS: TAMSULOSIN 0.4 MG CAP.ER.24H PO SCH (08:20)
[2018-04-06] MEDS: SODIUM CHLORIDE FLUSH 10ML SYR IVF SCH ×2 (08:21→21:56)
[2018-04-06] MEDS ORDERED: INSULIN GLARGINE 100 UNITS/ML, PEN SQ-INSULIN SCH (21:00)
[2018-04-06] MEDS: NICOTINE 7 MG/24 HR PATCH.TD24 TD SCH (21:55)
[2018-04-07] MEDS: NAFCILLIN 2 GM in DEXTROSE 5% 100 ML IV SCH ×7 (00:14→23:29)
[2018-04-07] MEDS: PROMETHAZINE 25 MG/ML, 1ML IM PRN (01:20)
[2018-04-07] MEDS: OXYcodone IR 5MG TABLET PO PRN (01:41)
[2018-04-07] MEDS: ALBUTEROL/IPRATROPIUM 2.5MG/0.5MG, 3 ML NPPB SCH ×6 (02:30→22:31)
[2018-04-07] MEDS: INSULIN LISPRO 100 UNITS/ML, PEN SQ-INSULIN SCH ×5 (03:58→16:08)
[2018-04-07 04:00] VITALS: BP 102/56
[2018-04-07 04:06] LABS: ANION GAP 4 mmol/L (5-15); CALCIUM 7.6 mg/dL (8.5-10.1); CHLORIDE 108 mmol/L (98-107); CREATININE 0.49 mg/dL (0.55-1.02)
[2018-04-07 04:15] LABS: MEAN CORPUSCULAR HEMOGLOBIN 32.3 pg (27.0-34.8); MEAN CORPUSCULAR HGB CONC 32.9 g/dL (32.4-35.8); MEAN CORPUSCULAR VOLUME 98.1 fL (80-100); MEAN PLATELET VOLUME 9.8 fL (7.4-10.4); PLATELET COUNT 218 x10^3/uL (130-400); RED BLOOD COUNT 2.24 x10^6/uL (3.82-5.3); RED CELL DISTRIBUTION WIDTH 16.1 % (9.6-15.2)
[2018-04-07 04:43] LABS: BASOPHILS # (AUTO) 0.06 x10^3/uL (0-0.1); BASOPHILS % (AUTO) 1 % (0-1); EOSINOPHILS # (AUTO) 0.16 x10^3/uL (0-0.4); EOSINOPHILS % (AUTO) 2 % (1-7); LYMPHOCYTES # (AUTO) 0.77 x10^3/uL (1-3.4); LYMPHOCYTES % (AUTO) 9 % (22-44); MD SCAN; MONOCYTES # (AUTO) 0.33 x10^3/uL (0.2-0.8); MONOCYTES % (AUTO) 4 % (2-9); NEUTROPHILS # (AUTO) 7.55 x10^3/uL (1.8-6.8); NEUTROPHILS % (AUTO) 85 % (42-75)
[2018-04-07] MEDS: METOPROLOL TARTRATE 25 MG TABLET PO SCH ×2 (05:50→18:00)
[2018-04-07] MEDS: POTASSIUM CHLORIDE 10% 40 MEQ/30 ML UDC PO SCH ×2 (09:06→20:30)
[2018-04-07] MEDS: POLYETHYLENE GLYCOL 17 GM PACKET PO PRN (09:07)
[2018-04-07] MEDS: DOCUSATE 50 MG/5 ML, 10ML UDC PO SCH ×2 (09:07→20:30)
[2018-04-07] MEDS: FAMOTIDINE 20 MG/2 ML IV SCH ×2 (09:07→23:29)
[2018-04-07] MEDS: TAMSULOSIN 0.4 MG CAP.ER.24H PO SCH (09:07)
[2018-04-07] MEDS: SODIUM CHLORIDE FLUSH 10ML SYR IVF SCH ×2 (09:07→20:50)
[2018-04-07] MEDS ORDERED: FUROSEMIDE 20 MG/2 ML IV ONE (09:30)
[2018-04-07] MEDS ORDERED: ALBUMIN HUMAN 25% 100 ML IV ONE (09:30)
[2018-04-07] MEDS: BISACODYL 10 MG SUPP PR PRN (12:35)
[2018-04-07] MEDS: INSULIN GLARGINE 100 UNITS/ML, PEN SQ-INSULIN SCH (20:35)
[2018-04-07] MEDS: NICOTINE 7 MG/24 HR PATCH.TD24 TD SCH (20:50)
[2018-04-07] MEDS: SENNA/DOCUSATE TABLET PO PRN (21:07)
[2018-04-08] MEDS: ALBUTEROL/IPRATROPIUM 2.5MG/0.5MG, 3 ML NPPB SCH ×6 (02:38→22:40)
[2018-04-08 04:00] VITALS: BP 128/57
[2018-04-08] MEDS: NAFCILLIN 2 GM in DEXTROSE 5% 100 ML IV SCH ×6 (04:37→23:49)
[2018-04-08 05:07] LABS: MEAN CORPUSCULAR HEMOGLOBIN 32.4 pg (27.0-34.8); MEAN CORPUSCULAR HGB CONC 33.2 g/dL (32.4-35.8); MEAN CORPUSCULAR VOLUME 97.4 fL (80-100); MEAN PLATELET VOLUME 9.5 fL (7.4-10.4); PLATELET COUNT 221 x10^3/uL (130-400); RED BLOOD COUNT 2.16 x10^6/uL (3.82-5.3); RED CELL DISTRIBUTION WIDTH 15.8 % (9.6-15.2)
[2018-04-08 05:19] LABS: ANION GAP 6 mmol/L (5-15); CHLORIDE 106 mmol/L (98-107); CREATININE 0.45 mg/dL (0.55-1.02)
[2018-04-08 05:22] LABS: TRIGLYCERIDES 102 mg/dL (50-200)
[2018-04-08 05:44] LABS: BASOPHILS # (AUTO) 0.05 x10^3/uL (0-0.1); BASOPHILS % (AUTO) 1 % (0-1); EOSINOPHILS # (AUTO) 0.27 x10^3/uL (0-0.4); EOSINOPHILS % (AUTO) 3 % (1-7); LYMPHOCYTES # (AUTO) 0.62 x10^3/uL (1-3.4); LYMPHOCYTES % (AUTO) 7 % (22-44); MD SCAN; MONOCYTES % (AUTO) 5 % (2-9); NEUTROPHILS # (AUTO) 7.34 x10^3/uL (1.8-6.8); NEUTROPHILS % (AUTO) 84 % (42-75)
[2018-04-08] MEDS: METOPROLOL TARTRATE 25 MG TABLET PO SCH ×2 (06:00→18:03)
[2018-04-08] MEDS: INSULIN LISPRO 100 UNITS/ML, PEN SQ-INSULIN SCH ×4 (07:56→21:00)
[2018-04-08] MEDS: FAMOTIDINE 20 MG/2 ML IV SCH ×2 (08:40→23:49)
[2018-04-08] MEDS: TAMSULOSIN 0.4 MG CAP.ER.24H PO SCH (08:40)
[2018-04-08] MEDS: DOCUSATE 50 MG/5 ML, 10ML UDC PO SCH ×2 (08:40→20:52)
[2018-04-08] MEDS: SODIUM CHLORIDE FLUSH 10ML SYR IVF SCH ×2 (08:40→20:52)
[2018-04-08] MEDS: ERGOCALCIFEROL 8,000UNIT/ML NG SCH (12:04)
[2018-04-08] MEDS ORDERED: ALBUMIN HUMAN 25% 50 ML IV ONE (12:30)
[2018-04-08] MEDS ORDERED: FUROSEMIDE 20 MG/2 ML IV ONE (12:30)
[2018-04-08] MEDS: SENNA/DOCUSATE TABLET PO PRN (20:52)
[2018-04-08] MEDS: NICOTINE 7 MG/24 HR PATCH.TD24 TD SCH (20:52)
[2018-04-08] MEDS: INSULIN GLARGINE 100 UNITS/ML, PEN SQ-INSULIN SCH (21:02)
[2018-04-08] MEDS: FENTANYL PF 100 MCG/2ML IVPush PRN (23:49)
[2018-04-09] MEDS: ALBUTEROL/IPRATROPIUM 2.5MG/0.5MG, 3 ML NPPB SCH ×6 (03:00→22:20)
[2018-04-09] MEDS: NAFCILLIN 2 GM in DEXTROSE 5% 100 ML IV SCH ×5 (03:54→20:24)
[2018-04-09] MEDS: INSULIN LISPRO 100 UNITS/ML, PEN SQ-INSULIN SCH ×4 (03:54→20:33)
[2018-04-09 04:34] LABS: ALBUMIN 1.7 g/dL (3.4-5.0); ANION GAP 8 mmol/L (5-15); CALCIUM 8.3 mg/dL (8.5-10.1); CHLORIDE 103 mmol/L (98-107)
[2018-04-09 04:35] LABS: MEAN CORPUSCULAR HEMOGLOBIN 32.5 pg (27.0-34.8); MEAN CORPUSCULAR HGB CONC 33.8 g/dL (32.4-35.8); MEAN CORPUSCULAR VOLUME 96.1 fL (80-100); MEAN PLATELET VOLUME 8.9 fL (7.4-10.4); PLATELET COUNT 264 x10^3/uL (130-400); RED BLOOD COUNT 2.32 x10^6/uL (3.82-5.3); RED CELL DISTRIBUTION WIDTH 16.1 % (9.6-15.2)
[2018-04-09 04:38] LABS: HCT (SEDRATE) 22.3 % (34.6-47.8)
[2018-04-09 04:43] LABS: ALANINE AMINOTRANSFERASE 17 U/L (12-78); ALKALINE PHOSPHATASE 51 U/L (45-117); BILIRUBIN,TOTAL 0.8 mg/dL (0.2-1.0); CREATININE 0.47 mg/dL (0.55-1.02); TOTAL PROTEIN 5.8 g/dL (6.4-8.2)
[2018-04-09 05:16] LABS: SEDIMENTATION RATE 120 mm/hr (0-20)
[2018-04-09] MEDS: METOPROLOL TARTRATE 25 MG TABLET PO SCH ×2 (05:25→17:14)
[2018-04-09 05:39] LABS: BASOPHILS # (AUTO) 0.08 x10^3/uL (0-0.1); BASOPHILS % (AUTO) 1 % (0-1); EOSINOPHILS # (AUTO) 0.28 x10^3/uL (0-0.4); EOSINOPHILS % (AUTO) 3 % (1-7); LYMPHOCYTES # (AUTO) 0.68 x10^3/uL (1-3.4); LYMPHOCYTES % (AUTO) 7 % (22-44); MD SCAN; MONOCYTES # (AUTO) 0.43 x10^3/uL (0.2-0.8); MONOCYTES % (AUTO) 4 % (2-9); NEUTROPHILS % (AUTO) 86 % (42-75)
[2018-04-09] MEDS ORDERED: POTASSIUM CHLORIDE 10% 40 MEQ/30 ML UDC PO ONE ×2 (06:00→10:00)
[2018-04-09] MEDS ORDERED: FUROSEMIDE 20 MG/2 ML IV ONE (09:00)
[2018-04-09] MEDS ORDERED: AcetaZOLAMIDE INJ 500 MG IVPush ONE (09:56)
[2018-04-09] MEDS: SODIUM CHLORIDE FLUSH 10ML SYR IVF SCH ×2 (11:06→20:24)
[2018-04-09] MEDS: DOCUSATE 50 MG/5 ML, 10ML UDC PO SCH ×2 (11:06→20:24)
[2018-04-09] MEDS: TAMSULOSIN 0.4 MG CAP.ER.24H PO SCH (11:06)
[2018-04-09] MEDS: FAMOTIDINE 20 MG/2 ML IV SCH ×2 (11:11→23:14)
[2018-04-09] MEDS: OXYcodone IR 5MG TABLET PO PRN ×2 (13:07→13:16)
[2018-04-09] MEDS: FUROSEMIDE 20 MG/2 ML IV SCH (17:11)
[2018-04-09] MEDS: POTASSIUM CHLORIDE 20 MEQ TAB.ER.PRT PO SCH (17:13)
[2018-04-09] MEDS: hydrALAzine 20 MG/ML, 1ML IV PRN (17:25)
[2018-04-09] MEDS: FENTANYL PF 100 MCG/2ML IVPush PRN ×2 (17:30→22:19)
[2018-04-09 17:40] LABS: MICROSCOPIC INDICATED
[2018-04-09 17:46] LABS: CULTURE INDICATED? NO
[2018-04-09] MEDS: INSULIN GLARGINE 100 UNITS/ML, PEN SQ-INSULIN SCH (20:25)
[2018-04-09] MEDS: NICOTINE 7 MG/24 HR PATCH.TD24 TD SCH (20:25)
[2018-04-10] MEDS: FENTANYL PF 100 MCG/2ML IVPush PRN ×2 (00:48→17:25)
[2018-04-10] MEDS: NAFCILLIN 2 GM in DEXTROSE 5% 100 ML IV SCH ×6 (00:48→21:11)
[2018-04-10] MEDS: ALBUTEROL/IPRATROPIUM 2.5MG/0.5MG, 3 ML NPPB SCH ×6 (02:11→22:33)
[2018-04-10] MEDS: INSULIN LISPRO 100 UNITS/ML, PEN SQ-INSULIN SCH ×4 (03:56→21:43)
[2018-04-10] MEDS: OXYcodone IR 5MG TABLET PO PRN ×2 (04:21→15:42)
[2018-04-10 04:34] LABS: BASOPHILS # (AUTO) 0.04 x10^3/uL (0-0.1); BASOPHILS % (AUTO) 0 % (0-1); EOSINOPHILS # (AUTO) 0.31 x10^3/uL (0-0.4); EOSINOPHILS % (AUTO) 3 % (1-7); LYMPHOCYTES # (AUTO) 0.74 x10^3/uL (1-3.4); LYMPHOCYTES % (AUTO) 8 % (22-44); MD NO; MEAN CORPUSCULAR HEMOGLOBIN 32.4 pg (27.0-34.8); MEAN CORPUSCULAR HGB CONC 33.3 g/dL (32.4-35.8); MEAN CORPUSCULAR VOLUME 97.4 fL (80-100); MONOCYTES # (AUTO) 0.54 x10^3/uL (0.2-0.8); MONOCYTES % (AUTO) 6 % (2-9); NEUTROPHILS # (AUTO) 8.01 x10^3/uL (1.8-6.8); NEUTROPHILS % (AUTO) 83 % (42-75); PLATELET COUNT 354 x10^3/uL (130-400); RED BLOOD COUNT 2.36 x10^6/uL (3.82-5.3); RED CELL DISTRIBUTION WIDTH 16.2 % (9.6-15.2)
[2018-04-10 04:36] LABS: ANION GAP 9 mmol/L (5-15); CALCIUM 8.4 mg/dL (8.5-10.1); CHLORIDE 105 mmol/L (98-107); CREATININE 0.44 mg/dL (0.55-1.02)
[2018-04-10] MEDS: METOPROLOL TARTRATE 25 MG TABLET PO SCH ×2 (05:17→17:09)
[2018-04-10] MEDS: FUROSEMIDE 20 MG/2 ML IV SCH ×2 (08:51→17:09)
[2018-04-10] MEDS: POTASSIUM CHLORIDE 20 MEQ TAB.ER.PRT PO SCH ×2 (08:51→17:09)
[2018-04-10] MEDS: SODIUM CHLORIDE FLUSH 10ML SYR IVF SCH ×2 (08:52→21:32)
[2018-04-10] MEDS ORDERED: AcetaZOLAMIDE INJ 500 MG IVPush SCH (09:00)
[2018-04-10] MEDS: DOCUSATE 50 MG/5 ML, 10ML UDC PO SCH ×2 (09:11→21:32)
[2018-04-10] MEDS: FAMOTIDINE 20 MG/2 ML IV SCH ×2 (11:34→23:45)
[2018-04-10] MEDS: NICOTINE 7 MG/24 HR PATCH.TD24 TD SCH (21:32)
[2018-04-10] MEDS: INSULIN GLARGINE 100 UNITS/ML, PEN SQ-INSULIN SCH (21:43)
[2018-04-11] MEDS: NAFCILLIN 2 GM in DEXTROSE 5% 100 ML IV SCH ×6 (01:10→19:57)
[2018-04-11] MEDS: ALBUTEROL/IPRATROPIUM 2.5MG/0.5MG, 3 ML NPPB SCH ×7 (02:37→22:29)
[2018-04-11] MEDS: INSULIN LISPRO 100 UNITS/ML, PEN SQ-INSULIN SCH ×4 (03:57→22:01)
[2018-04-11 05:13] LABS: MEAN CORPUSCULAR HEMOGLOBIN 32.2 pg (27.0-34.8); MEAN CORPUSCULAR HGB CONC 33.3 g/dL (32.4-35.8); MEAN CORPUSCULAR VOLUME 96.5 fL (80-100); MEAN PLATELET VOLUME 8.6 fL (7.4-10.4); PLATELET COUNT 381 x10^3/uL (130-400); RED BLOOD COUNT 2.23 x10^6/uL (3.82-5.3); RED CELL DISTRIBUTION WIDTH 16.4 % (9.6-15.2)
[2018-04-11 05:25] LABS: ANION GAP 6 mmol/L (5-15); CALCIUM 8.2 mg/dL (8.5-10.1); CHLORIDE 103 mmol/L (98-107)
[2018-04-11 05:26] LABS: CREATININE 0.47 mg/dL (0.55-1.02); TRIGLYCERIDES 89 mg/dL (50-200)
[2018-04-11 06:02] LABS: BASOPHILS # (AUTO) 0.08 x10^3/uL (0-0.1); BASOPHILS % (AUTO) 1 % (0-1); EOSINOPHILS # (AUTO) 0.27 x10^3/uL (0-0.4); EOSINOPHILS % (AUTO) 3 % (1-7); LYMPHOCYTES % (AUTO) 9 % (22-44); MD SCAN; MONOCYTES # (AUTO) 0.51 x10^3/uL (0.2-0.8); MONOCYTES % (AUTO) 6 % (2-9); NEUTROPHILS # (AUTO) 6.37 x10^3/uL (1.8-6.8); NEUTROPHILS % (AUTO) 80 % (42-75)
[2018-04-11] MEDS: METOPROLOL TARTRATE 25 MG TABLET PO SCH ×2 (06:38→17:45)
[2018-04-11] MEDS: FUROSEMIDE 20 MG/2 ML IV SCH ×2 (08:06→15:51)
[2018-04-11] MEDS: DOCUSATE 50 MG/5 ML, 10ML UDC PO SCH ×2 (08:07→21:47)
[2018-04-11] MEDS: POLYETHYLENE GLYCOL 17 GM PACKET PO PRN (08:07)
[2018-04-11] MEDS: POTASSIUM CHLORIDE 20 MEQ TAB.ER.PRT PO SCH ×2 (08:07→15:51)
[2018-04-11] MEDS: OXYcodone IR 5MG TABLET PO PRN (08:07)
[2018-04-11] MEDS: SODIUM CHLORIDE FLUSH 10ML SYR IVF SCH ×2 (08:08→19:58)
[2018-04-11 12:25] LABS: MICROSCOPIC INDICATED
[2018-04-11] MEDS: FAMOTIDINE 20 MG/2 ML IV SCH ×2 (12:36→23:32)
[2018-04-11] MEDS: NICOTINE 7 MG/24 HR PATCH.TD24 TD SCH (21:48)
[2018-04-11] MEDS: INSULIN GLARGINE 100 UNITS/ML, PEN SQ-INSULIN SCH (22:02)
[2018-04-12] MEDS: NAFCILLIN 2 GM in DEXTROSE 5% 100 ML IV SCH ×6 (00:23→20:01)
[2018-04-12] MEDS: ALBUTEROL/IPRATROPIUM 2.5MG/0.5MG, 3 ML NPPB SCH ×6 (02:01→22:52)
[2018-04-12] MEDS: INSULIN LISPRO 100 UNITS/ML, PEN SQ-INSULIN SCH ×4 (04:03→21:12)
[2018-04-12 04:26] LABS: MEAN CORPUSCULAR HEMOGLOBIN 32.1 pg (27.0-34.8); MEAN CORPUSCULAR VOLUME 97.2 fL (80-100); MEAN PLATELET VOLUME 8.6 fL (7.4-10.4); PLATELET COUNT 482 x10^3/uL (130-400); RED BLOOD COUNT 2.29 x10^6/uL (3.82-5.3); RED CELL DISTRIBUTION WIDTH 16.8 % (9.6-15.2)
[2018-04-12 04:36] LABS: ANION GAP 6 mmol/L (5-15); CALCIUM 8.4 mg/dL (8.5-10.1); CHLORIDE 101 mmol/L (98-107); CREATININE 0.47 mg/dL (0.55-1.02)
[2018-04-12 04:46] LABS: BASOPHILS # (AUTO) 0.07 x10^3/uL (0-0.1); BASOPHILS % (AUTO) 1 % (0-1); EOSINOPHILS # (AUTO) 0.33 x10^3/uL (0-0.4); EOSINOPHILS % (AUTO) 4 % (1-7); LYMPHOCYTES # (AUTO) 0.78 x10^3/uL (1-3.4); LYMPHOCYTES % (AUTO) 9 % (22-44); MD SCAN; MONOCYTES # (AUTO) 0.71 x10^3/uL (0.2-0.8); MONOCYTES % (AUTO) 8 % (2-9); NEUTROPHILS # (AUTO) 6.65 x10^3/uL (1.8-6.8); NEUTROPHILS % (AUTO) 78 % (42-75)
[2018-04-12] MEDS: METOPROLOL TARTRATE 25 MG TABLET PO SCH ×2 (06:29→17:49)
[2018-04-12] MEDS: POTASSIUM CHLORIDE 20 MEQ TAB.ER.PRT PO SCH ×2 (08:38→16:00)
[2018-04-12] MEDS: DOCUSATE 50 MG/5 ML, 10ML UDC PO SCH ×2 (08:38→21:08)
[2018-04-12] MEDS: SODIUM CHLORIDE FLUSH 10ML SYR IVF SCH ×2 (08:38→21:08)
[2018-04-12] MEDS: FUROSEMIDE 20 MG/2 ML IV SCH ×2 (08:38→16:00)
[2018-04-12] MEDS: OXYcodone IR 5MG TABLET PO PRN (12:48)
[2018-04-12] MEDS: FAMOTIDINE 20 MG/2 ML IV SCH ×2 (12:48→23:30)
[2018-04-12] MEDS: FENTANYL PF 100 MCG/2ML IVPush PRN ×4 (14:09→20:01)
[2018-04-12] MEDS ORDERED: ENOXAPARIN 30 MG/0.3 ML ONE (14:12)
[2018-04-12] MEDS: ENOXAPARIN 40 MG/0.4 ML SQ SCH (14:15)
[2018-04-12] MEDS: INSULIN GLARGINE 100 UNITS/ML, PEN SQ-INSULIN SCH (21:13)
[2018-04-12] MEDS: NICOTINE 7 MG/24 HR PATCH.TD24 TD SCH (21:15)
[2018-04-13] MEDS: NAFCILLIN 2 GM in DEXTROSE 5% 100 ML IV SCH ×7 (00:02→23:24)
[2018-04-13] MEDS: FENTANYL PF 100 MCG/2ML IVPush PRN ×5 (01:10→23:24)
[2018-04-13] MEDS: ALBUTEROL/IPRATROPIUM 2.5MG/0.5MG, 3 ML NPPB SCH ×6 (02:07→22:40)
[2018-04-13] MEDS: INSULIN LISPRO 100 UNITS/ML, PEN SQ-INSULIN SCH ×5 (03:45→21:00)
[2018-04-13 04:41] LABS: BASOPHILS # (AUTO) 0.02 x10^3/uL (0-0.1); BASOPHILS % (AUTO) 0 % (0-1); EOSINOPHILS # (AUTO) 0.33 x10^3/uL (0-0.4); EOSINOPHILS % (AUTO) 4 % (1-7); LYMPHOCYTES # (AUTO) 0.93 x10^3/uL (1-3.4); LYMPHOCYTES % (AUTO) 11 % (22-44); MD NO; MEAN CORPUSCULAR HEMOGLOBIN 32.4 pg (27.0-34.8); MEAN CORPUSCULAR HGB CONC 33.3 g/dL (32.4-35.8); MEAN CORPUSCULAR VOLUME 97.3 fL (80-100); MEAN PLATELET VOLUME 8.3 fL (7.4-10.4); MONOCYTES # (AUTO) 0.77 x10^3/uL (0.2-0.8); MONOCYTES % (AUTO) 9 % (2-9); NEUTROPHILS # (AUTO) 6.23 x10^3/uL (1.8-6.8); NEUTROPHILS % (AUTO) 75 % (42-75); PLATELET COUNT 491 x10^3/uL (130-400); RED BLOOD COUNT 2.41 x10^6/uL (3.82-5.3); RED CELL DISTRIBUTION WIDTH 16.7 % (9.6-15.2)
[2018-04-13 04:48] LABS: ANION GAP 6 mmol/L (5-15); CALCIUM 8.5 mg/dL (8.5-10.1); CHLORIDE 100 mmol/L (98-107)
[2018-04-13 04:49] LABS: CREATININE 0.53 mg/dL (0.55-1.02)
[2018-04-13] MEDS: METOPROLOL TARTRATE 25 MG TABLET PO SCH ×2 (06:12→18:04)
[2018-04-13] MEDS: POTASSIUM CHLORIDE 20 MEQ TAB.ER.PRT PO SCH (08:00)
[2018-04-13] MEDS: FAMOTIDINE 20 MG/2 ML IV SCH (09:16)
[2018-04-13] MEDS: DOCUSATE 50 MG/5 ML, 10ML UDC PO SCH ×2 (09:16→20:33)
[2018-04-13] MEDS: SODIUM CHLORIDE FLUSH 10ML SYR IVF SCH ×2 (09:16→20:33)
[2018-04-13] MEDS: FUROSEMIDE 20 MG/2 ML IV SCH ×2 (09:16→16:08)
[2018-04-13] MEDS ORDERED: FAMOTIDINE 20 MG TABLET ONE (20:26)
[2018-04-13] MEDS: POLYETHYLENE GLYCOL 17 GM PACKET PO PRN (20:31)
[2018-04-13] MEDS: ENOXAPARIN 40 MG/0.4 ML SQ SCH ×2 (20:31→21:00)
[2018-04-13] MEDS: NICOTINE 7 MG/24 HR PATCH.TD24 TD SCH ×2 (20:31→21:00)
[2018-04-13] MEDS: OXYcodone IR 5MG TABLET PO PRN (20:32)
[2018-04-13] MEDS: FAMOTIDINE 20 MG TABLET NG SCH (20:32)
[2018-04-13] MEDS: BISACODYL 10 MG SUPP PR PRN (20:33)
[2018-04-13] MEDS: INSULIN GLARGINE 100 UNITS/ML, PEN SQ-INSULIN SCH ×2 (20:35→21:00)
[2018-04-14] MEDS: OXYcodone IR 5MG TABLET PO PRN (01:48)
[2018-04-14] MEDS: INSULIN LISPRO 100 UNITS/ML, PEN SQ-INSULIN SCH ×4 (02:36→20:52)
[2018-04-14] MEDS: ALBUTEROL/IPRATROPIUM 2.5MG/0.5MG, 3 ML NPPB SCH ×6 (03:00→23:00)
[2018-04-14] MEDS: NAFCILLIN 2 GM in DEXTROSE 5% 100 ML IV SCH ×5 (04:34→20:52)
[2018-04-14 05:04] LABS: CHLORIDE 97 mmol/L (98-107)
[2018-04-14] MEDS: METOPROLOL TARTRATE 25 MG TABLET PO SCH ×2 (05:07→16:45)
[2018-04-14 05:12] LABS: ALANINE AMINOTRANSFERASE 19 U/L (12-78); ALBUMIN 1.6 g/dL (3.4-5.0); ALKALINE PHOSPHATASE 71 U/L (45-117); ANION GAP 6 mmol/L (5-15); BILIRUBIN,TOTAL 0.6 mg/dL (0.2-1.0); CALCIUM 7.7 mg/dL (8.5-10.1); CREATININE 0.47 mg/dL (0.55-1.02); TOTAL PROTEIN 6.4 g/dL (6.4-8.2); TRIGLYCERIDES 90 mg/dL (50-200)
[2018-04-14 05:41] LABS: MEAN CORPUSCULAR HEMOGLOBIN 31.7 pg (27.0-34.8); MEAN CORPUSCULAR HGB CONC 32.9 g/dL (32.4-35.8); MEAN CORPUSCULAR VOLUME 96.2 fL (80-100); MEAN PLATELET VOLUME 7.9 fL (7.4-10.4); PLATELET COUNT 518 x10^3/uL (130-400); RED BLOOD COUNT 2.28 x10^6/uL (3.82-5.3); RED CELL DISTRIBUTION WIDTH 16.9 % (9.6-15.2)
[2018-04-14 06:00] LABS: BASOPHILS # (AUTO) 0.03 x10^3/uL (0-0.1); BASOPHILS % (AUTO) 0 % (0-1); EOSINOPHILS # (AUTO) 0.23 x10^3/uL (0-0.4); EOSINOPHILS % (AUTO) 3 % (1-7); LYMPHOCYTES # (AUTO) 0.83 x10^3/uL (1-3.4); LYMPHOCYTES % (AUTO) 9 % (22-44); MD SCAN; MONOCYTES # (AUTO) 0.75 x10^3/uL (0.2-0.8); MONOCYTES % (AUTO) 8 % (2-9); NEUTROPHILS # (AUTO) 7.19 x10^3/uL (1.8-6.8); NEUTROPHILS % (AUTO) 80 % (42-75)
[2018-04-14] MEDS ORDERED: MAGNESIUM SULFATE PMX 2GM/50ML 50 ML IV ONE (07:00)
[2018-04-14] MEDS ORDERED: POTASSIUM CHLORIDE 10% 40 MEQ/30 ML UDC PO SCH (09:00)
[2018-04-14] MEDS: FAMOTIDINE 20 MG TABLET NG SCH ×2 (09:12→20:52)
[2018-04-14] MEDS: DOCUSATE 50 MG/5 ML, 10ML UDC PO SCH ×2 (09:12→20:52)
[2018-04-14] MEDS: FUROSEMIDE 20 MG/2 ML IV SCH ×2 (09:12→16:45)
[2018-04-14] MEDS: SODIUM CHLORIDE FLUSH 10ML SYR IVF SCH ×2 (09:12→20:53)
[2018-04-14] MEDS: METHYLNALTREXONE 12 MG/0.6 ML SQ SCH (14:22)
[2018-04-14] MEDS: ENOXAPARIN 40 MG/0.4 ML SQ SCH (15:35)
[2018-04-14] MEDS: MAGNESIUM CITRATE 300ML ORAL SOL PO PRN (20:51)
[2018-04-14] MEDS: SENNA/DOCUSATE TABLET PO PRN (20:52)
[2018-04-14] MEDS: INSULIN GLARGINE 100 UNITS/ML, PEN SQ-INSULIN SCH (20:53)
[2018-04-14] MEDS: NICOTINE 7 MG/24 HR PATCH.TD24 TD SCH (21:06)
[2018-04-14] MEDS: BISACODYL 10 MG SUPP PR PRN (23:35)
[2018-04-15] MEDS: NAFCILLIN 2 GM in DEXTROSE 5% 100 ML IV SCH ×6 (01:36→21:01)
[2018-04-15] MEDS: ALBUTEROL/IPRATROPIUM 2.5MG/0.5MG, 3 ML NPPB SCH ×6 (03:00→22:26)
[2018-04-15] MEDS: INSULIN LISPRO 100 UNITS/ML, PEN SQ-INSULIN SCH ×4 (03:32→21:00)
[2018-04-15 04:22] LABS: BASOPHILS # (AUTO) 0.03 x10^3/uL (0-0.1); BASOPHILS % (AUTO) 0 % (0-1); EOSINOPHILS # (AUTO) 0.22 x10^3/uL (0-0.4); EOSINOPHILS % (AUTO) 2 % (1-7); LYMPHOCYTES # (AUTO) 1.12 x10^3/uL (1-3.4); LYMPHOCYTES % (AUTO) 10 % (22-44); MD NO; MEAN CORPUSCULAR HEMOGLOBIN 31.8 pg (27.0-34.8); MEAN CORPUSCULAR HGB CONC 33.1 g/dL (32.4-35.8); MEAN CORPUSCULAR VOLUME 96.1 fL (80-100); MEAN PLATELET VOLUME 7.7 fL (7.4-10.4); MONOCYTES % (AUTO) 8 % (2-9); NEUTROPHILS # (AUTO) 8.66 x10^3/uL (1.8-6.8); NEUTROPHILS % (AUTO) 79 % (42-75); PLATELET COUNT 722 x10^3/uL (130-400); RED BLOOD COUNT 2.44 x10^6/uL (3.82-5.3); RED CELL DISTRIBUTION WIDTH 16.7 % (9.6-15.2)
[2018-04-15 04:24] LABS: ANION GAP 8 mmol/L (5-15); CALCIUM 8.4 mg/dL (8.5-10.1); CHLORIDE 95 mmol/L (98-107); CREATININE 0.43 mg/dL (0.55-1.02)
[2018-04-15] MEDS: METOPROLOL TARTRATE 25 MG TABLET PO SCH ×2 (05:44→21:01)
[2018-04-15] MEDS: DOCUSATE 50 MG/5 ML, 10ML UDC PO SCH ×2 (07:44→21:00)
[2018-04-15] MEDS: FAMOTIDINE 20 MG TABLET NG SCH ×2 (07:44→21:04)
[2018-04-15] MEDS: FUROSEMIDE 20 MG/2 ML IV SCH ×2 (08:18→16:33)
[2018-04-15] MEDS: SODIUM CHLORIDE FLUSH 10ML SYR IVF SCH ×2 (08:20→21:04)
[2018-04-15] MEDS: POTASSIUM CHLORIDE 10% 40 MEQ/30 ML UDC PO SCH ×2 (09:00→21:01)
[2018-04-15] MEDS ORDERED: EPINEPHRINE TOPICAL SOLN 1 MG/ML, 30ML ONE (10:47)
[2018-04-15] MEDS ORDERED: BUPIVACAINE/PF 0.5% ONE (10:47)
[2018-04-15] MEDS ORDERED: EPINEPHRINE 1 MG/ML, 1ML ONE (10:48)
[2018-04-15] MEDS ORDERED: MIDAZOLAM 1 MG/ML, 2ML ONE (10:55)
[2018-04-15] MEDS ORDERED: FENTANYL PF 100 MCG/2ML ONE (10:57)
[2018-04-15] MEDS: KETOCONAZOLE CRM 2%, 15GM TP SCH ×2 (11:10→21:01)
[2018-04-15] MEDS ORDERED: PHENYLEPHRINE 10 MG/ML ONE (11:29)
[2018-04-15] MEDS: OXYcodone IR 5MG TABLET PO PRN (14:39)
[2018-04-15] MEDS: FENTANYL PF 100 MCG/2ML IVPush PRN ×3 (14:39→21:05)
[2018-04-15] MEDS: NICOTINE 7 MG/24 HR PATCH.TD24 TD SCH (21:00)
[2018-04-15] MEDS: ENOXAPARIN 40 MG/0.4 ML SQ SCH (21:00)
[2018-04-15] MEDS: ERGOCALCIFEROL 8,000UNIT/ML NG SCH (21:05)
[2018-04-15] MEDS: INSULIN GLARGINE 100 UNITS/ML, PEN SQ-INSULIN SCH (21:08)
[2018-04-16] MEDS: FENTANYL PF 100 MCG/2ML IVPush PRN (00:31)
[2018-04-16] MEDS: NAFCILLIN 2 GM in DEXTROSE 5% 100 ML IV SCH ×6 (01:22→21:20)
[2018-04-16] MEDS: ALBUTEROL/IPRATROPIUM 2.5MG/0.5MG, 3 ML NPPB SCH ×6 (02:48→22:36)
[2018-04-16] MEDS: INSULIN LISPRO 100 UNITS/ML, PEN SQ-INSULIN SCH ×4 (03:38→20:33)
[2018-04-16 04:17] LABS: MEAN CORPUSCULAR HEMOGLOBIN 31.2 pg (27.0-34.8); MEAN CORPUSCULAR HGB CONC 32.6 g/dL (32.4-35.8); MEAN CORPUSCULAR VOLUME 95.8 fL (80-100); MEAN PLATELET VOLUME 7.4 fL (7.4-10.4); PLATELET COUNT 647 x10^3/uL (130-400); RED BLOOD COUNT 2.37 x10^6/uL (3.82-5.3); RED CELL DISTRIBUTION WIDTH 16.6 % (9.6-15.2)
[2018-04-16 04:29] LABS: ANION GAP 7 mmol/L (5-15); CALCIUM 7.9 mg/dL (8.5-10.1); CHLORIDE 95 mmol/L (98-107)
[2018-04-16 04:30] LABS: CREATININE 0.55 mg/dL (0.55-1.02)
[2018-04-16 04:32] LABS: BASOPHILS # (AUTO) 0.07 x10^3/uL (0-0.1); BASOPHILS % (AUTO) 1 % (0-1); EOSINOPHILS # (AUTO) 0.21 x10^3/uL (0-0.4); EOSINOPHILS % (AUTO) 2 % (1-7); LYMPHOCYTES # (AUTO) 1.11 x10^3/uL (1-3.4); LYMPHOCYTES % (AUTO) 11 % (22-44); MD SCAN; MONOCYTES # (AUTO) 0.69 x10^3/uL (0.2-0.8); MONOCYTES % (AUTO) 7 % (2-9); NEUTROPHILS # (AUTO) 7.72 x10^3/uL (1.8-6.8); NEUTROPHILS % (AUTO) 79 % (42-75)
[2018-04-16] MEDS: METOPROLOL TARTRATE 25 MG TABLET PO SCH ×2 (05:54→17:17)
[2018-04-16] MEDS ORDERED: POTASSIUM CHLORIDE 10% 40 MEQ/30 ML UDC PO SCH (09:00)
[2018-04-16] MEDS: DOCUSATE 50 MG/5 ML, 10ML UDC PO SCH ×2 (09:00→20:30)
[2018-04-16] MEDS: AcetaZOLAMIDE INJ 500 MG IVPush SCH ×2 (09:10→20:30)
[2018-04-16] MEDS: FAMOTIDINE 20 MG TABLET NG SCH ×2 (09:11→20:30)
[2018-04-16] MEDS: MICAFUNGIN 100 MG in SODIUM CHLORIDE 0.9% 100 ML IV SCH (09:15)
[2018-04-16] MEDS: SODIUM CHLORIDE FLUSH 10ML SYR IVF SCH ×2 (09:15→20:30)
[2018-04-16] MEDS: ENOXAPARIN 40 MG/0.4 ML SQ SCH (20:30)
[2018-04-16] MEDS: NICOTINE 7 MG/24 HR PATCH.TD24 TD SCH (20:31)
[2018-04-16] MEDS: INSULIN GLARGINE 100 UNITS/ML, PEN SQ-INSULIN SCH (20:32)
[2018-04-17] MEDS: NAFCILLIN 2 GM in DEXTROSE 5% 100 ML IV SCH ×6 (01:04→20:54)
[2018-04-17] MEDS: ALBUTEROL/IPRATROPIUM 2.5MG/0.5MG, 3 ML NPPB SCH ×6 (02:17→22:40)
[2018-04-17] MEDS: INSULIN LISPRO 100 UNITS/ML, PEN SQ-INSULIN SCH ×4 (03:24→20:59)
[2018-04-17 04:24] LABS: BASOPHILS # (AUTO) 0.04 x10^3/uL (0-0.1); BASOPHILS % (AUTO) 0 % (0-1); EOSINOPHILS # (AUTO) 0.31 x10^3/uL (0-0.4); EOSINOPHILS % (AUTO) 3 % (1-7); LYMPHOCYTES # (AUTO) 1.03 x10^3/uL (1-3.4); LYMPHOCYTES % (AUTO) 9 % (22-44); MD NO; MEAN CORPUSCULAR HEMOGLOBIN 31.2 pg (27.0-34.8); MEAN CORPUSCULAR HGB CONC 32.6 g/dL (32.4-35.8); MEAN CORPUSCULAR VOLUME 95.7 fL (80-100); MEAN PLATELET VOLUME 7.2 fL (7.4-10.4); MONOCYTES # (AUTO) 0.68 x10^3/uL (0.2-0.8); MONOCYTES % (AUTO) 6 % (2-9); NEUTROPHILS # (AUTO) 9.12 x10^3/uL (1.8-6.8); NEUTROPHILS % (AUTO) 82 % (42-75); PLATELET COUNT 766 x10^3/uL (130-400); RED BLOOD COUNT 2.37 x10^6/uL (3.82-5.3); RED CELL DISTRIBUTION WIDTH 16.2 % (9.6-15.2)
[2018-04-17 04:29] LABS: ANION GAP 6 mmol/L (5-15); CALCIUM 8.4 mg/dL (8.5-10.1); CHLORIDE 98 mmol/L (98-107)
[2018-04-17 04:31] LABS: TRIGLYCERIDES 108 mg/dL (50-200)
[2018-04-17] MEDS: METOPROLOL TARTRATE 25 MG TABLET PO SCH ×2 (05:26→17:43)
[2018-04-17] MEDS: POTASSIUM CHLORIDE 10% 40 MEQ/30 ML UDC PO SCH ×2 (08:57→20:54)
[2018-04-17] MEDS: FAMOTIDINE 20 MG TABLET NG SCH ×2 (08:57→20:54)
[2018-04-17] MEDS: AcetaZOLAMIDE INJ 500 MG IVPush SCH ×2 (08:57→20:54)
[2018-04-17] MEDS: SODIUM CHLORIDE FLUSH 10ML SYR IVF SCH ×2 (08:58→20:58)
[2018-04-17] MEDS: DOCUSATE 50 MG/5 ML, 10ML UDC PO SCH ×2 (08:58→19:31)
[2018-04-17] MEDS: MICAFUNGIN 100 MG in SODIUM CHLORIDE 0.9% 100 ML IV SCH (10:17)
[2018-04-17] MEDS: ENOXAPARIN 40 MG/0.4 ML SQ SCH (20:58)
[2018-04-17] MEDS: INSULIN GLARGINE 100 UNITS/ML, PEN SQ-INSULIN SCH (21:00)
[2018-04-17] MEDS: NICOTINE 7 MG/24 HR PATCH.TD24 TD SCH (22:11)
[2018-04-18] MEDS: NAFCILLIN 2 GM in DEXTROSE 5% 100 ML IV SCH ×6 (02:04→20:39)
[2018-04-18] MEDS: ALBUTEROL/IPRATROPIUM 2.5MG/0.5MG, 3 ML NPPB SCH ×6 (03:00→22:30)
[2018-04-18] MEDS: INSULIN LISPRO 100 UNITS/ML, PEN SQ-INSULIN SCH ×4 (04:20→20:49)
[2018-04-18 04:29] LABS: BASOPHILS # (AUTO) 0.06 x10^3/uL (0-0.1); BASOPHILS % (AUTO) 1 % (0-1); EOSINOPHILS # (AUTO) 0.21 x10^3/uL (0-0.4); EOSINOPHILS % (AUTO) 2 % (1-7); LYMPHOCYTES # (AUTO) 1.11 x10^3/uL (1-3.4); LYMPHOCYTES % (AUTO) 10 % (22-44); MD NO; MEAN CORPUSCULAR HEMOGLOBIN 31.6 pg (27.0-34.8); MEAN CORPUSCULAR HGB CONC 32.8 g/dL (32.4-35.8); MEAN CORPUSCULAR VOLUME 96.1 fL (80-100); MEAN PLATELET VOLUME 7.3 fL (7.4-10.4); MONOCYTES # (AUTO) 0.72 x10^3/uL (0.2-0.8); MONOCYTES % (AUTO) 7 % (2-9); NEUTROPHILS # (AUTO) 8.57 x10^3/uL (1.8-6.8); NEUTROPHILS % (AUTO) 80 % (42-75); PLATELET COUNT 798 x10^3/uL (130-400); RED BLOOD COUNT 2.41 x10^6/uL (3.82-5.3)
[2018-04-18 04:36] LABS: ANION GAP 9 mmol/L (5-15); CALCIUM 8.6 mg/dL (8.5-10.1); CHLORIDE 103 mmol/L (98-107); CREATININE 0.54 mg/dL (0.55-1.02)
[2018-04-18] MEDS: METOPROLOL TARTRATE 25 MG TABLET PO SCH ×2 (06:00→17:31)
[2018-04-18] MEDS: DOCUSATE 50 MG/5 ML, 10ML UDC PO SCH ×2 (09:00→20:38)
[2018-04-18] MEDS: AcetaZOLAMIDE INJ 500 MG IVPush SCH ×2 (09:13→20:38)
[2018-04-18] MEDS: SODIUM CHLORIDE FLUSH 10ML SYR IVF SCH ×2 (09:17→20:24)
[2018-04-18] MEDS: FAMOTIDINE 20 MG TABLET NG SCH ×2 (09:17→20:38)
[2018-04-18] MEDS: POTASSIUM CHLORIDE 10% 40 MEQ/30 ML UDC PO SCH ×2 (09:17→20:38)
[2018-04-18] MEDS: MICAFUNGIN 100 MG in SODIUM CHLORIDE 0.9% 100 ML IV SCH (10:55)
[2018-04-18] MEDS: ENOXAPARIN 40 MG/0.4 ML SQ SCH (20:48)
[2018-04-18] MEDS: INSULIN GLARGINE 100 UNITS/ML, PEN SQ-INSULIN SCH (20:51)
[2018-04-18] MEDS: NICOTINE 7 MG/24 HR PATCH.TD24 TD SCH (20:51)
[2018-04-18] MEDS: OXYcodone IR 5MG TABLET PO PRN (22:19)
[2018-04-19] MEDS: NAFCILLIN 2 GM in DEXTROSE 5% 100 ML IV SCH ×6 (01:06→22:47)
[2018-04-19] MEDS: ALBUTEROL/IPRATROPIUM 2.5MG/0.5MG, 3 ML NPPB SCH ×6 (02:19→22:10)
[2018-04-19] MEDS: INSULIN LISPRO 100 UNITS/ML, PEN SQ-INSULIN SCH ×4 (03:03→20:53)
[2018-04-19 04:51] LABS: BASOPHILS # (AUTO) 0.05 x10^3/uL (0-0.1); BASOPHILS % (AUTO) 1 % (0-1); EOSINOPHILS # (AUTO) 0.24 x10^3/uL (0-0.4); EOSINOPHILS % (AUTO) 2 % (1-7); LYMPHOCYTES # (AUTO) 1.22 x10^3/uL (1-3.4); LYMPHOCYTES % (AUTO) 12 % (22-44); MD NO; MEAN CORPUSCULAR HEMOGLOBIN 31.2 pg (27.0-34.8); MEAN CORPUSCULAR HGB CONC 32.2 g/dL (32.4-35.8); MEAN CORPUSCULAR VOLUME 96.8 fL (80-100); MEAN PLATELET VOLUME 7.5 fL (7.4-10.4); MONOCYTES # (AUTO) 0.68 x10^3/uL (0.2-0.8); MONOCYTES % (AUTO) 7 % (2-9); NEUTROPHILS # (AUTO) 8.04 x10^3/uL (1.8-6.8); NEUTROPHILS % (AUTO) 79 % (42-75); PLATELET COUNT 793 x10^3/uL (130-400); RED BLOOD COUNT 2.51 x10^6/uL (3.82-5.3); RED CELL DISTRIBUTION WIDTH 17.2 % (9.6-15.2)
[2018-04-19 04:56] LABS: ANION GAP 7 mmol/L (5-15); CALCIUM 8.5 mg/dL (8.5-10.1); CHLORIDE 104 mmol/L (98-107)
[2018-04-19 04:57] LABS: CREATININE 0.56 mg/dL (0.55-1.02)
[2018-04-19] MEDS: METOPROLOL TARTRATE 25 MG TABLET PO SCH ×2 (05:59→18:31)
[2018-04-19] MEDS: FAMOTIDINE 20 MG TABLET NG SCH ×2 (08:37→20:48)
[2018-04-19] MEDS: SODIUM CHLORIDE FLUSH 10ML SYR IVF SCH ×2 (08:38→20:33)
[2018-04-19] MEDS: DOCUSATE 50 MG/5 ML, 10ML UDC PO SCH ×2 (08:38→19:14)
[2018-04-19] MEDS: AcetaZOLAMIDE INJ 500 MG IVPush SCH ×2 (08:43→20:48)
[2018-04-19] MEDS ORDERED: IPRA3AMP NPPB (09:39)
[2018-04-19] MEDS ORDERED: ACET500V7 IVPush (09:39)
[2018-04-19] MEDS ORDERED: FAMO20TA7 NG (09:39)
[2018-04-19] MEDS ORDERED: ERGO80004 NG (09:39)
[2018-04-19] MEDS ORDERED: INSU100I13 SQ-INSULIN (09:39)
[2018-04-19] MEDS ORDERED: ENOX40SY4 SQ (09:39)
[2018-04-19] MEDS ORDERED: ALPR0.254 PO (09:39)
[2018-04-19] MEDS ORDERED: INSU100I11 SQ-INSULIN (09:39)
[2018-04-19] MEDS ORDERED: METO25TA35 PO (09:39)
[2018-04-19] MEDS ORDERED: LIDO10VI34 ENDO (09:39)
[2018-04-19] MEDS: OXYcodone IR 5MG TABLET PO PRN ×2 (09:54→15:27)
[2018-04-19] MEDS: MICAFUNGIN 100 MG in SODIUM CHLORIDE 0.9% 100 ML IV SCH (09:56)
[2018-04-19] MEDS: ENOXAPARIN 40 MG/0.4 ML SQ SCH (19:14)
[2018-04-19] MEDS: INSULIN GLARGINE 100 UNITS/ML, PEN SQ-INSULIN SCH (20:54)
[2018-04-19] MEDS: NICOTINE 7 MG/24 HR PATCH.TD24 TD SCH (20:59)
[2018-04-19 21:41] LABS: MICROSCOPIC INDICATED
[2018-04-19 22:00] LABS: CULTURE INDICATED? NO
[2018-04-20] MEDS: NAFCILLIN 2 GM in DEXTROSE 5% 100 ML IV SCH ×3 (02:17→11:51)
[2018-04-20] MEDS: ALBUTEROL/IPRATROPIUM 2.5MG/0.5MG, 3 ML NPPB SCH ×3 (02:21→10:01)
[2018-04-20] MEDS: INSULIN LISPRO 100 UNITS/ML, PEN SQ-INSULIN SCH ×2 (03:08→09:00)
[2018-04-20 04:00] VITALS: BP 102/66
[2018-04-20 04:37] LABS: MEAN CORPUSCULAR HEMOGLOBIN 31.4 pg (27.0-34.8); MEAN CORPUSCULAR HGB CONC 32.7 g/dL (32.4-35.8); MEAN PLATELET VOLUME 7.3 fL (7.4-10.4); PLATELET COUNT 652 x10^3/uL (130-400); RED BLOOD COUNT 2.35 x10^6/uL (3.82-5.3); RED CELL DISTRIBUTION WIDTH 16.9 % (9.6-15.2)
[2018-04-20 04:43] LABS: ANION GAP 8 mmol/L (5-15); CALCIUM 7.9 mg/dL (8.5-10.1); CHLORIDE 108 mmol/L (98-107)
[2018-04-20 04:45] LABS: CREATININE 0.52 mg/dL (0.55-1.02); TRIGLYCERIDES 117 mg/dL (50-200)
[2018-04-20 04:54] LABS: BASOPHILS # (AUTO) 0.05 x10^3/uL (0-0.1); BASOPHILS % (AUTO) 0 % (0-1); EOSINOPHILS # (AUTO) 0.23 x10^3/uL (0-0.4); EOSINOPHILS % (AUTO) 2 % (1-7); LYMPHOCYTES # (AUTO) 1.18 x10^3/uL (1-3.4); LYMPHOCYTES % (AUTO) 9 % (22-44); MD SCAN; MONOCYTES # (AUTO) 0.72 x10^3/uL (0.2-0.8); MONOCYTES % (AUTO) 6 % (2-9); NEUTROPHILS # (AUTO) 10.83 x10^3/uL (1.8-6.8); NEUTROPHILS % (AUTO) 83 % (42-75)
[2018-04-20] MEDS ORDERED: CEFAZOLIN 1,000 MG in SODIUM CHLORIDE 0.9% 50 ML IV ONE ×2 (05:00→08:30)
[2018-04-20] MEDS: METOPROLOL TARTRATE 25 MG TABLET PO SCH (05:59)
[2018-04-20] MEDS: OXYcodone IR 5MG TABLET PO PRN (05:59)
[2018-04-20 06:42] VITALS: BP 111/74
[2018-04-20 07:00] VITALS: BP 109/73
[2018-04-20] MEDS ORDERED: POTASSIUM CHLORIDE 10% 40 MEQ/30 ML UDC PO ONE (07:30)
[2018-04-20 08:30] VITALS: BP 124/86
[2018-04-20] MEDS ORDERED: FENTANYL PF 100 MCG/2ML ONE (08:47)
[2018-04-20] MEDS ORDERED: MIDAZOLAM 1 MG/ML, 5ML ONE (08:47)
[2018-04-20] MEDS: DOCUSATE 50 MG/5 ML, 10ML UDC PO SCH (09:00)
[2018-04-20] MEDS: SODIUM CHLORIDE FLUSH 10ML SYR IVF SCH (09:19)
[2018-04-20] MEDS: FAMOTIDINE 20 MG TABLET NG SCH (10:12)
[2018-04-20] MEDS: MICAFUNGIN 100 MG in SODIUM CHLORIDE 0.9% 100 ML IV SCH (10:12)
[2018-04-20] MEDS: AcetaZOLAMIDE INJ 500 MG IVPush SCH (10:13)
[2018-04-20] MEDS ORDERED: PROPOFOL 10 MG/ML, 20ML ONE (12:00)
[2018-04-20] MEDS: FENTANYL PF 100 MCG/2ML IVPush PRN (12:03)
== END 2018-04-20 12:09 | DRG 3 ==
LOC: ED 11:54 → EDIP 13:06 → 3NE 13:45 → 4EST 15:22 → 3NE 15:38 → 4EST 17:25 → CCU 21:04 → 4NOR 03-29 16:37 → 5SO 03-30 17:52 → CCU 04-01 07:09
PROVIDERS: ADMIT Internal Medicine Pulmonary Disease; ATTEND Internal Medicine Pulmonary Disease
PROC: 0T9B70Z Drainage of Bladder with Drainage Device, Via Natural or Artificial Opening (ICD-10-PCS; 2018-03-21)
PROC: 00BW0ZZ Excision of Cervical Spinal Cord, Open Approach (ICD-10-PCS; 2018-03-24)
PROC: 5A1955Z Respiratory Ventilation, Greater than 96 Consecutive Hours (ICD-10-PCS; 2018-04-02)
PROC: 02HV33Z Insertion of Infusion Device into Superior Vena Cava, Percutaneous Approach (ICD-10-PCS; 2018-04-02)
PROC: B548ZZA Ultrasonography of Superior Vena Cava, Guidance (ICD-10-PCS; 2018-04-02)
PROC: 0BH17EZ Insertion of Endotracheal Airway into Trachea, Via Natural or Artificial Opening (ICD-10-PCS; 2018-04-02)
PROC: 0W9B30Z Drainage of Left Pleural Cavity with Drainage Device, Percutaneous Approach (ICD-10-PCS; 2018-04-02)
PROC: 0W9930Z Drainage of Right Pleural Cavity with Drainage Device, Percutaneous Approach (ICD-10-PCS; 2018-04-02)
PROC: 0W9C0ZZ Drainage of Mediastinum, Open Approach (ICD-10-PCS; 2018-04-04)
PROC: 009 Central Nervous System and Cranial Nerves, Drainage (ICD-10-PCS; principal; 2018-04-04 15:30)
PROC: 0B110F4 Bypass Trachea to Cutaneous with Tracheostomy Device, Open Approach (ICD-10-PCS; 2018-04-15)
PROC: 0DH63UZ Insertion of Feeding Device into Stomach, Percutaneous Approach (ICD-10-PCS; 2018-04-20)
PROC: 30233N1 Transfusion of Nonautologous Red Blood Cells into Peripheral Vein, Percutaneous Approach (ICD-10-PCS; 2018-04-20)
DX: A41.01 Sepsis due to Methicillin susceptible Staphylococcus aureus (principal); I33.0 Acute and subacute infective endocarditis; G06.1 Intraspinal abscess and granuloma; E43 Unspecified severe protein-calorie malnutrition; J85.3 Abscess of mediastinum; J86.9 Pyothorax without fistula; E87.3 Alkalosis; K85.90 Acute pancreatitis without necrosis or infection, unspecified; I46.9 Cardiac arrest, cause unspecified; J96.01 Acute respiratory failure with hypoxia; G93.40 Encephalopathy, unspecified; J15.9 Unspecified bacterial pneumonia; F10.231 Alcohol dependence with withdrawal delirium; C79.51 Secondary malignant neoplasm of bone; E87.0 Hyperosmolality and hypernatremia; E87.1 Hypo-osmolality and hyponatremia; J39.0 Retropharyngeal and parapharyngeal abscess; J44.0 Chronic obstructive pulmonary disease with (acute) lower respiratory infection; J98.11 Atelectasis; M46.22 Osteomyelitis of vertebra, cervical region; L02.11 Cutaneous abscess of neck; M46.24 Osteomyelitis of vertebra, thoracic region; N17.9 Acute kidney failure, unspecified; Z99.11 Dependence on respirator [ventilator] status; D64.9 Anemia, unspecified; E11.9 Type 2 diabetes mellitus without complications; E04.2 Nontoxic multinodular goiter; E87.6 Hypokalemia; F17.210 Nicotine dependence, cigarettes, uncomplicated; I11.0 Hypertensive heart disease with heart failure; I34.0 Nonrheumatic mitral (valve) insufficiency; I50.9 Heart failure, unspecified; J20.9 Acute bronchitis, unspecified; M46.49 Discitis, unspecified, multiple sites in spine; M48.02 Spinal stenosis, cervical region; Z51.5 Encounter for palliative care; Z93.0 Tracheostomy status; Z98.1 Arthrodesis status; Z68.25 Body mass index [BMI] 25.0-25.9, adult
CPT/HCPCS: 36415; 36569; 36600; 70491; 71045; 71260; 72040; 72156; 72157; 72158; 74018; 74230; 76937; 77001; 80048; 80053; 80307; 81001; 82040; 82140; 82306; 82607; 82803; 82805; 82962; 83036; 83605; 83735; 84100; 84443; 84478; 84484; 85025; 85610; 85651; 85730; 86140; 86850; 86900; 86923; 87015; 87040; 87070; 87075; 87077; 87081; 87086; 87102; 87106; 87116; 87147; 87176; 87186; 87205; 87206; 93005; 93306; 93308; 93321; 93325; 93970; 94002; 94003; 94150; 94640; 96361; 96374; A9585; B4087; C1729; J0171; J0690; J0696; J0697; J0878; J1100; J1650; J1885; J1940; J2248; J2250; J2405; J2543; J2550; J2704; J2710; J3010; J3370; J3411; J3480; J3490; J7620; P9047; Q0162; Q9967; C1751; J0330; J0360; J1030; J1120; J1815; J2060; J2370; J3475; J7030; J7040; J7050; J7120; P9016; S0028